=== PATIENT | female | born 1955 | race Caucasian/White ===

== ENCOUNTER 2023-09-17 03:52 | Outpatient (BNV) | payer MEDICARE, MEDICAID, SELFPAY | END 2023-09-17 10:51 | PROVIDERS: Admitting Provider Psychiatry & Neurology Psychiatry; Visit Provider Internal Medicine | DX: I45.81 Long QT syndrome (principal) | CPT/HCPCS: 93010 ==

== ENCOUNTER 2023-09-17 03:52 | Outpatient (BNV) | payer MEDICARE, MEDICAID, SELFPAY | END 2023-09-25 08:45 | PROVIDERS: Admitting Provider Psychiatry & Neurology Psychiatry; Visit Provider Physician Assistant Surgical | DX: K21.9 Gastro-esophageal reflux disease without esophagitis (principal) | CPT/HCPCS: 74246 ==

== ENCOUNTER 2023-09-17 03:52 | Inpatient (IN) | payer MEDICARE, MEDICAID, SELFPAY ==
--- NOTE | 2023-09-17 | ECG_ITS ---
Test Reason : QTC CHECK Blood Pressure : / mmHG Vent. Rate : 091 BPM Atrial Rate : 091 BPM P-R Int : 162 ms QRS Dur : 086 ms QT Int : 364 ms P-R-T Axes : 050 034 058 degrees QTc Int : 447 ms Normal sinus rhythm Normal ECG No previous ECGs available Referred By: Gabriella Bee Electronically Signed By:BHARAT EVANS
--- NOTE | ~2023-09-17 | FL_ITS ---
EXAMINATION: XR FLUOROSCOPY UPPER GI WITH AIR CLINICAL INFORMATION: Reflux; regurgitation COMPARISON: None TECHNIQUE: Fluoroscopic air contrast upper GI examination was performed utilizing standard techniques with thin and thick barium and effervescent granules. Numerous spot images were obtained. FINDINGS: Lateral cine images of the oropharynx and hypopharynx demonstrate normal swallow mechanism with normal epiglottic inversion and soft palate elevation. There is trace laryngeal penetration with thick barium. No tracheal penetration, glottic or subglottic aspiration identified. No nasopharyngeal reflux present. Hypopharyngeal structures appear normal without evidence of mass or diverticulum. There was mild cricopharyngeal achalasia. Dual and single contrast images of the esophagus demonstrate a dilated esophagus. Feline mucosal pattern noted episodically in the midesophagus. No evidence of stricture, mass, or ulcerations identified above the GE junction. Esophageal peristalsis was normal. A moderate size type I hiatal hernia is present. There is significant gastroesophageal reflux seen up to the thoracic inlet. There is a moderate short segment narrowing at the GE junction above the hiatus hernia, suggestive of a mild benign stricture versus mild achalasia. Evaluation of the stomach is limited from lck of distention due to poor tolerance of the effervescent granules. No gross evidence of mass, ulceration, or other abnormality. There was a delay in contrast passing from the gastric antrum and into the duodenal bulb due to the significant gastroesophageal reflux. Single and air-contrast images of the duodenal bulb are limited however no gross abnormality is seen. The duodenal sweep is poorly visualized due to the delayed gastric emptying/gastroesophageal reflux. The examination had to be terminated due to the patient's significant nausea and reflux symptoms. FLUOROSCOPY TIME: 6 minutes 36 seconds Number of Spot Images: 16 Number of Cine: 12 DOSE AREA PRODUCT: [id number] uGy-m2 (microgray-meter squared) FL/FL barium swallow IMPRESSION: 1. Trace laryngeal penetration with thick barium. No subglottic aspiration. 2. Dilated esophagus. Mild short segment benign stricture at the GE junction versus mild achalasia. 3. Moderate-sized type I hiatal hernia. 4. Severe gastroesophageal reflux. 5. Limited evaluation of the gastric mucosal and duodenal duodenal sweep due to poor tolerance of the effervescent granules, delayed gastric emptying, significant gastroesophageal reflux. Grossly no abnormality seen. This procedure was performed by Smith Alaniz PA-C, and supervised by Dr. Morgan
[2023-09-17 04:40] VITALS: BP 191/95; PULSE 95; RESP 18; TEMP 36.1; O2SAT 98
[2023-09-17 06:05] VITALS: BP 147/70; PULSE 86; RESP 17; O2SAT 96
[2023-09-17 06:29] VITALS: BMI 35.6
[2023-09-17] MEDS: Acetaminophen 325 MG TABLET 650 MG PO ×2 (06:57→17:11)
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
[2023-09-17 08:42] LABS: Estimated Average Glucose 309 mg/dL; Hemoglobin A1c % 12.4 % (<6.0)
[2023-09-17 08:43] LABS: Alanine Aminotransferase 20 U/L (0-31); Albumin Level 4.2 g/dL (3.5-5.0); Alkaline Phosphatase 109 U/L (39-117); Anion Gap 15 (12-20); Aspartate Amino Transferase 30 U/L (5-31); Bilirubin Total 0.3 mg/dL (0.0-1.0); Blood Urea Nitrogen 18 mg/dL (9-16); Calcium 9.5 mg/dL (8.4-10.2); Carbon Dioxide 29 mmol/L (22-29); Chloride 98 mmol/L (96-108); Cholesterol 175 mg/dL (<200); Creatinine Clr Calc Pharmacy 50.9; Estimated Glomerular Filt Rate 50; Glucose Fasting 206 mg/dL (60-99); HDL Cholesterol 67 mg/dL (>40); LDL Cholesterol Calculated 74 mg/dL (<100); Magnesium 1.3 mg/dL (1.6-2.6); Potassium 4.3 mmol/L (3.3-5.1); Sodium 138 mmol/L (135-145); Total Protein 8.3 g/dL (6.5-8.0); Triglycerides 170 mg/dL (<150)
--- NOTE | 2023-09-17 08:44 | PC.NURSE ---
Critical magnesium level of 1.3, DR Navarrete notified. Awaiting orders. Will continue to monitor.
[2023-09-17 08:51] LABS: Free T4 (Free Thyroxine) 0.88 ng/dL (0.71-1.85); Thyroid Stimulating Hormone 3.64 uIU/mL (0.32-4.0)
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
[2023-09-17 09:19] LABS: Folate 8.8 ng/mL (> or = 4.0); Vitamin B12 1178 pg/mL (200-900)
[2023-09-17 10:01] VITALS: BP 137/74; PULSE 93; RESP 18; TEMP 35.8; O2SAT 97
[2023-09-17] MEDS: Lidocaine 4 % Patch ADH..PATCH 1 PATCH TRANSDERMA (11:05)
[2023-09-17] MEDS: Magnesium Oxide 400 MG TABLET 800 MG PO (11:05)
[2023-09-17] MEDS: metFORMIN HCl ER 500 MG TAB.ER.24H 1000 MG PO ×2 (11:05→20:57)
[2023-09-17 11:20] LABS: Glucose, Whole Blood 186 mg/dL (60-115)
[2023-09-17 11:21] LABS: Iron 50 mcg/dL (30-160); Percent Iron Saturation 14 % (15-50); Total Iron Binding Capacity 370 mcg/dL (228-428); Unsaturated Iron Binding 320 ug/dL
[2023-09-17 11:23] LABS: Magnesium 1.2 mg/dL (1.6-2.6)
[2023-09-17] MEDS: Insulin Lispro 100 UNIT/ML 3 ML VIAL SUBCUT ×3 (12:45→20:55)
[2023-09-17] MEDS: Omeprazole 20 MG CAPSULE.DR PO ×2 (13:15→20:57)
[2023-09-17] MEDS: Venlafaxine HCl ER 75 MG CAP.ER.24H PO (13:17)
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
[2023-09-17] MEDS: amLODIPine Besylate 5 MG TABLET PO (14:28)
[2023-09-17] MEDS: lisinopriL 5 MG TABLET PO (14:28)
[2023-09-17 16:26] LABS: Glucose, Whole Blood 231 mg/dL (60-115)
[2023-09-17] MEDS: TiZANidine HCL 4 MG TABLET PO (18:00)
[2023-09-17] MEDS: hydrOXYzine HCL 25 MG TABLET PO (18:09)
[2023-09-17 19:55] VITALS: BP 124/65; PULSE 96; RESP 18; TEMP 36.4; O2SAT 97
[2023-09-17 20:10] LABS: Glucose, Whole Blood 220 mg/dL (60-115)
[2023-09-17] MEDS: Magnesium Oxide 400 MG TABLET PO (20:56)
[2023-09-17] MEDS: risperiDONE 2 MG TABLET PO (20:56)
[2023-09-17] MEDS: Atorvastatin Calcium 20 MG TABLET PO (20:56)
[2023-09-17] MEDS: Insulin Glargine,Hum.rec.anlog 100 UNIT/ML 10 ML VIAL 20 UNIT SUBCUT (20:56)
[2023-09-18] MEDS: Omeprazole 20 MG CAPSULE.DR PO ×2 (06:47→17:46)
[2023-09-18 06:52] LABS: Glucose, Whole Blood 170 mg/dL (60-115)
[2023-09-18 09:00] VITALS: BP 138/56; PULSE 117; RESP 18; TEMP 36.4; O2SAT 96
[2023-09-18] MEDS: Magnesium Hydrox/Alum Hydrox 30 ML ORAL.SUSP PO (09:59)
[2023-09-18] MEDS: Magnesium Oxide 400 MG TABLET PO ×2 (10:04→21:51)
[2023-09-18] MEDS: lisinopriL 5 MG TABLET PO (10:04)
[2023-09-18] MEDS: clonazePAM 0.5 MG TABLET PO ×2 (10:04→21:51)
[2023-09-18] MEDS: Venlafaxine HCl ER 75 MG CAP.ER.24H PO (10:05)
[2023-09-18] MEDS: amLODIPine Besylate 5 MG TABLET PO (10:05)
[2023-09-18] MEDS: metFORMIN HCl ER 500 MG TAB.ER.24H 1000 MG PO ×2 (10:06→21:50)
[2023-09-18] MEDS: Insulin Lispro 100 UNIT/ML 3 ML VIAL SUBCUT ×3 (10:30→21:49)
[2023-09-18] MEDS: Lidocaine 4 % Patch ADH..PATCH 1 PATCH TRANSDERMA (10:31)
[2023-09-18 11:29] LABS: Glucose, Whole Blood 315 mg/dL (60-115)
[2023-09-18 12:36] LABS: Glucose, Whole Blood 268 mg/dL (60-115)
[2023-09-18 12:57] LABS: Iron 22 mcg/dL (30-160); Magnesium 1.3 mg/dL (1.6-2.6); Percent Iron Saturation 8 % (15-50); Total Iron Binding Capacity 282 mcg/dL (228-428); Unsaturated Iron Binding 260 ug/dL
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
[2023-09-18 16:54] LABS: Glucose, Whole Blood 287 mg/dL (60-115)
[2023-09-18] MEDS: Acetaminophen 325 MG TABLET 650 MG PO (17:45)
[2023-09-18] MEDS: Ferrous Sulfate 324 MG TABLET.DR PO (17:45)
[2023-09-18] MEDS: TiZANidine HCL 4 MG TABLET PO (17:46)
[2023-09-18 18:00] VITALS: BP 131/62; PULSE 99; RESP 18; TEMP 36.1; O2SAT 97
[2023-09-18 20:28] LABS: Glucose, Whole Blood 237 mg/dL (60-115)
[2023-09-18] MEDS: Insulin Glargine,Hum.rec.anlog 100 UNIT/ML 10 ML VIAL 20 UNIT SUBCUT (21:49)
[2023-09-18] MEDS: Atorvastatin Calcium 20 MG TABLET PO (21:50)
[2023-09-18] MEDS: risperiDONE 2 MG TABLET PO (21:51)
[2023-09-18] MEDS: traZODone HCL 50 MG TABLET PO (21:52)
[2023-09-19] MEDS: Omeprazole 20 MG CAPSULE.DR PO ×2 (05:46→16:01)
[2023-09-19 06:26] LABS: Glucose, Whole Blood 196 mg/dL (60-115)
[2023-09-19 07:00] VITALS: BMI 35.0
[2023-09-19 08:12] VITALS: BP 130/63; PULSE 109; RESP 16; TEMP 36.8; O2SAT 95
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
[2023-09-19 09:58] LABS: Glucose, Whole Blood 226 mg/dL (60-115)
[2023-09-19] MEDS: Insulin Lispro 100 UNIT/ML 3 ML VIAL SUBCUT ×3 (10:01→21:44)
[2023-09-19] MEDS: TiZANidine HCL 4 MG TABLET PO ×2 (10:03→21:36)
[2023-09-19] MEDS: metFORMIN HCl ER 500 MG TAB.ER.24H 1000 MG PO ×2 (10:03→21:38)
[2023-09-19] MEDS: Ferrous Sulfate 324 MG TABLET.DR PO (10:03)
[2023-09-19] MEDS: amLODIPine Besylate 5 MG TABLET PO (10:03)
[2023-09-19] MEDS: lisinopriL 5 MG TABLET PO (10:04)
[2023-09-19] MEDS: Magnesium Oxide 400 MG TABLET PO ×2 (10:04→21:40)
[2023-09-19] MEDS: Acetaminophen 325 MG TABLET 650 MG PO ×2 (10:04→21:37)
[2023-09-19] MEDS: clonazePAM 0.5 MG TABLET PO ×2 (10:04→21:40)
[2023-09-19] MEDS: Venlafaxine HCl ER 75 MG CAP.ER.24H PO (10:04)
[2023-09-19] MEDS: hydrOXYzine HCL 25 MG TABLET PO (10:05)
[2023-09-19] MEDS: Lidocaine 4 % Patch ADH..PATCH 1 PATCH TRANSDERMA (10:09)
[2023-09-19 11:29] LABS: Glucose, Whole Blood 351 mg/dL (60-115)
--- NOTE | 2023-09-19 11:40 | PC.NURSE ---
POC 351 before lunch, Gabriella Bee notified per sliding scale policy. Lin is asymptomatic.
[2023-09-19] MEDS: Famotidine 20 MG TABLET 10 MG PO (12:24)
[2023-09-19 16:13] LABS: Glucose, Whole Blood 218 mg/dL (60-115)
[2023-09-19 18:00] VITALS: BP 121/57; PULSE 103; RESP 18; TEMP 36.2; O2SAT 95
[2023-09-19 19:58] LABS: Glucose, Whole Blood 313 mg/dL (60-115)
[2023-09-19] MEDS: Atorvastatin Calcium 20 MG TABLET PO (21:39)
[2023-09-19] MEDS: risperiDONE 2 MG TABLET PO (21:39)
[2023-09-19] MEDS: traZODone HCL 50 MG TABLET PO (21:40)
[2023-09-19] MEDS: Insulin Glargine,Hum.rec.anlog 100 UNIT/ML 10 ML VIAL 20 UNIT SUBCUT (21:43)
[2023-09-20] MEDS: Omeprazole 20 MG CAPSULE.DR PO ×2 (05:29→16:58)
[2023-09-20 06:25] LABS: Glucose, Whole Blood 158 mg/dL (60-115)
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
[2023-09-20 10:40] VITALS: BP 151/70; PULSE 97; RESP 18; TEMP 36.3; O2SAT 95
[2023-09-20] MEDS: lisinopriL 5 MG TABLET PO (10:43)
[2023-09-20] MEDS: Venlafaxine HCl ER 75 MG CAP.ER.24H PO (10:43)
[2023-09-20] MEDS: clonazePAM 0.5 MG TABLET PO ×2 (10:43→21:02)
[2023-09-20] MEDS: amLODIPine Besylate 5 MG TABLET PO (10:43)
[2023-09-20] MEDS: metFORMIN HCl ER 500 MG TAB.ER.24H 1000 MG PO ×2 (10:43→21:02)
[2023-09-20] MEDS: Magnesium Oxide 400 MG TABLET PO ×2 (10:44→21:01)
[2023-09-20] MEDS: TiZANidine HCL 4 MG TABLET PO (10:44)
[2023-09-20] MEDS: Acetaminophen 325 MG TABLET 650 MG PO (10:44)
[2023-09-20] MEDS: Ferrous Sulfate 324 MG TABLET.DR PO (10:44)
[2023-09-20] MEDS: risperiDONE 1 MG TABLET PO (10:46)
[2023-09-20 11:15] LABS: Glucose, Whole Blood 200 mg/dL (60-115)
[2023-09-20] MEDS: Insulin Lispro 100 UNIT/ML 3 ML VIAL SUBCUT ×3 (11:48→21:03)
[2023-09-20 16:27] LABS: Glucose, Whole Blood 223 mg/dL (60-115)
[2023-09-20 16:58] LABS: Magnesium 1.6 mg/dL (1.6-2.6)
[2023-09-20 20:01] LABS: Glucose, Whole Blood 288 mg/dL (60-115)
[2023-09-20 21:00] VITALS: BP 153/77; PULSE 107; RESP 16; TEMP 35.6; O2SAT 94
[2023-09-20] MEDS: Atorvastatin Calcium 20 MG TABLET PO (21:02)
[2023-09-20] MEDS: Insulin Glargine,Hum.rec.anlog 100 UNIT/ML 10 ML VIAL 20 UNIT SUBCUT (21:02)
[2023-09-20] MEDS: traZODone HCL 50 MG TABLET PO (21:02)
[2023-09-20] MEDS: risperiDONE 2 MG TABLET PO (21:02)
[2023-09-21] MEDS: Loperamide HCl 2 MG CAPSULE PO (02:20)
[2023-09-21 06:38] LABS: Glucose, Whole Blood 184 mg/dL (60-115)
[2023-09-21] MEDS: Omeprazole 20 MG CAPSULE.DR PO ×2 (06:39→16:37)
[2023-09-21 09:27] VITALS: BP 111/61; PULSE 102; RESP 17; TEMP 36.2; O2SAT 96
[2023-09-21] MEDS: metFORMIN HCl ER 500 MG TAB.ER.24H 1000 MG PO ×2 (10:46→21:10)
[2023-09-21] MEDS: risperiDONE 1 MG TABLET PO (10:46)
[2023-09-21] MEDS: Magnesium Oxide 400 MG TABLET PO ×2 (10:46→21:11)
[2023-09-21] MEDS: clonazePAM 0.5 MG TABLET PO ×2 (10:46→21:10)
[2023-09-21] MEDS: amLODIPine Besylate 5 MG TABLET PO (10:46)
[2023-09-21] MEDS: Venlafaxine HCl ER 75 MG CAP.ER.24H PO (10:46)
[2023-09-21] MEDS: lisinopriL 5 MG TABLET PO (10:46)
[2023-09-21] MEDS: Ferrous Sulfate 324 MG TABLET.DR PO (10:47)
[2023-09-21] MEDS: Lidocaine 4 % Patch ADH..PATCH 1 PATCH TRANSDERMA (10:52)
--- NOTE | 2023-09-21 10:56 | HO.PSYCHPN ---
Subjective Subjective Date of Service: 09/21/23 Reason For Visit: Unspecified psychosis Interim History: calm, cooperative. no questions or complaints. resting in bed. per staff, slept through the night. FSBS 184. Mental Status Exam Mental Status Exam Narrative: Appearance: wearing hospital gown, fair hygiene, in NAD Behavior: guarded Psychomotor: no agitation or retardation noted Speech: mostly clear, normal rate/rhythm/volume, spontaneous TP: disorganized TC: no paranoia or delusions expressed Mood: not assessed Affect: blunted SI: none expressed HI: none expressed VH/AH: none expressed Insight/judgment: poor x 2. Memory/cog: alert, oriented x 3. Diagnostics Vital Signs (24Hr): Vital Signs - 24 hr 09/20/23 21:00 09/21/23 09:27 Temperature 96.1 F L 97.2 F Pulse Rate 107 H 102 H Respiratory Rate 16 17 Blood Pressure 153/77 H 111/61 Pulse Oximetry 94 96 Oxygen Delivery Method Room Air Room Air BMI result Body Mass Index 35.0 Labs 09/17/23 07:58 Labs: Laboratory Results - last 48 hr 09/19/23 09/19/23 09/19/23 11:24 16:04 19:53 POC Glucose 351 H* 218 H 313 H Magnesium 09/20/23 09/20/23 09/20/23 06:19 11:10 16:22 POC Glucose 158 H 200 H 223 H Magnesium 09/20/23 09/20/23 09/21/23 16:38 19:54 06:25 POC Glucose 288 H 184 H Magnesium 1.6 Medications Medications Current Medications Acetaminophen (Acetaminophen 325 Mg Tablet) 650 mg PO Q6H PRN PRN Reason: Headache/Pain Mild Scale (1-3) Last Admin: 09/20/23 10:44 Dose: 650 mg Al Hydroxide/Mg Hydroxide (Magnesium Hydrox/Alum Hydrox 30 Ml Oral.Susp) 30 ml PO Q6H PRN PRN Reason: Heartburn/Nausea Last Admin: 09/18/23 09:59 Dose: 30 ml Amlodipine Besylate (Amlodipine Besylate 5 Mg Tablet) 5 mg PO DAILY [facility]; Protocol Last Admin: 09/21/23 10:46 Dose: 5 mg Atorvastatin Calcium (Atorvastatin Calcium 20 Mg Tablet) 20 mg PO BEDTIME [facility] Last Admin: 09/20/23 21:02 Dose: 20 mg Clonazepam (Clonazepam 0.5 Mg Tablet) 0.5 mg PO BID [facility] Last Admin: 09/21/23 10:46 Dose: 0.5 mg Ferrous Sulfate (Ferrous Sulfate 324 Mg Tablet.) 324 mg PO DAILY [facility] Last Admin: 09/21/23 10:47 Dose: 324 mg Hydroxyzine HCl (Hydroxyzine Hcl 25 Mg Tablet) 25 mg PO Q6H PRN PRN Reason: Anxiety Last Admin: 09/19/23 10:05 Dose: 25 mg Insulin Glargine (Insulin Glargine,Hum.Rec.Anlog 100 Unit/Ml 10 Ml Vial) 20 unit SUBCUT BEDTIME [facility] Last Admin: 09/20/23 21:02 Dose: 20 unit Insulin Human Lispro (Insulin Lispro 100 Unit/Ml 3 Ml Vial) 0 unit SUBCUT QIDACHS [facility]; Protocol Last Admin: 09/21/23 08:40 Dose: Not Given Lidocaine (Lidocaine 4 % Patch Adh..Patch) 1 patch TRANSDERMA DAILY [facility]; Protocol Last Admin: 09/21/23 10:52 Dose: 1 patch Lisinopril (Lisinopril 5 Mg Tablet) 5 mg PO DAILY [facility]; Protocol Last Admin: 09/21/23 10:46 Dose: 5 mg Magnesium Hydroxide (Milk Of Magnesia 30 Ml Oral.Susp) 30 ml PO DAILY PRN PRN Reason: Constipation Magnesium Oxide (Magnesium Oxide 400 Mg Tablet) 400 mg PO BID [facility] Last Admin: 09/21/23 10:46 Dose: 400 mg Meclizine HCl (Meclizine Hcl 12.5 Mg Tablet) 12.5 mg PO Q8H PRN PRN Reason: Vertigo Metformin HCl (Metformin Hcl Er 500 Mg Tab.Er.24h) 1,000 mg PO BID [facility] Last Admin: 09/21/23 10:46 Dose: 1,000 mg Omeprazole (Omeprazole 20 Mg Capsule.) 20 mg PO BID@0630,1630 [facility] Last Admin: 09/21/23 06:39 Dose: 20 mg Risperidone (Risperidone 2 Mg Tablet) 2 mg PO BEDTIME [facility] Last Admin: 09/20/23 21:02 Dose: 2 mg Risperidone (Risperidone 1 Mg Tablet) 1 mg PO DAILY [facility] Last Admin: 09/21/23 10:46 Dose: 1 mg Tizanidine HCl (Tizanidine Hcl 4 Mg Tablet) 4 mg PO TID PRN PRN Reason: muscle spasm Last Admin: 09/20/23 10:44 Dose: 4 mg Trazodone HCl (Trazodone Hcl 50 Mg Tablet) 50 mg PO BEDTIME PRN PRN Reason: Insomnia Last Admin: 09/20/23 21:02 Dose: 50 mg Venlafaxine HCl (Venlafaxine Hcl Er 75 Mg Cap.Er.24h) 75 mg PO DAILY [facility] Last Admin: 09/21/23 10:46 Dose: 75 mg Allergies Allergies Allergy/AdvReac Type Severity Reaction Status Date / Time No Known Allergies Allergy Verified 09/16/23 21:45 Assessment & Plan Assessment & Plan (1) Psychosis: Status: Acute Code(s): F29 - Unspecified psychosis not due to a substance or known physiological condition Plan 63 year old female with history of htn, uncontrolled type 2 diabetes, gerd/gastritis, depression, unspecified psychosis, hld, oa, ckd stage 3, tobacco dependence admitted to geriatric psychiatry from [facility] with consult placed to hospitalist service for medical H&P. - increase risperidone to 1mg po daily and 2mg po qhs. monitor Mg. 09/19 continue tx.PLEASE DO NOT INCREASE EFFEXOR IT WILL WORSEN HER PSYCHOSIS AND DELUSIONS! 09/20: continue current mgmt. Reason for continued inpatient stay Substantial Risk for: inability to function Time Spent With Patient Time: Total time managing care of this patient today ____ minutes.
[2023-09-21 11:30] LABS: Glucose, Whole Blood 194 mg/dL (60-115)
[2023-09-21] MEDS: Insulin Lispro 100 UNIT/ML 3 ML VIAL SUBCUT ×3 (11:31→21:11)
[2023-09-21 16:21] LABS: Glucose, Whole Blood 253 mg/dL (60-115)
--- NOTE | 2023-09-21 16:56 | PC.NURSE ---
This evening patient reported pain in her left wrist/forearm. Informed this nurse that it is an aching feeling and she has trouble closing her hand into a fist. No notable bruising or swelling, patient refused PRN Tylenol but utilizing an ice pack per her request. Covering MD Herson Jc notified via tiger text.
[2023-09-21 19:55] VITALS: BP 123/68; PULSE 106; RESP 18; TEMP 36.4; O2SAT 98
[2023-09-21 20:18] LABS: Glucose, Whole Blood 296 mg/dL (60-115)
[2023-09-21] MEDS: Insulin Glargine,Hum.rec.anlog 100 UNIT/ML 10 ML VIAL 20 UNIT SUBCUT (21:11)
[2023-09-21] MEDS: risperiDONE 2 MG TABLET PO (21:11)
[2023-09-21] MEDS: Atorvastatin Calcium 20 MG TABLET PO (21:11)
[2023-09-22] MEDS: Omeprazole 20 MG CAPSULE.DR PO ×2 (06:15→16:43)
[2023-09-22 06:32] LABS: Glucose, Whole Blood 179 mg/dL (60-115)
[2023-09-22 08:22] VITALS: BP 136/61; PULSE 108; RESP 17; TEMP 36.3; O2SAT 94
[2023-09-22] MEDS: lisinopriL 5 MG TABLET PO (08:28)
[2023-09-22] MEDS: Ferrous Sulfate 324 MG TABLET.DR PO (08:28)
[2023-09-22] MEDS: metFORMIN HCl ER 500 MG TAB.ER.24H 1000 MG PO ×2 (08:28→20:25)
[2023-09-22] MEDS: risperiDONE 1 MG TABLET PO (08:28)
[2023-09-22] MEDS: Venlafaxine HCl ER 75 MG CAP.ER.24H PO (08:28)
[2023-09-22] MEDS: amLODIPine Besylate 5 MG TABLET PO (08:28)
[2023-09-22] MEDS: Magnesium Oxide 400 MG TABLET PO ×2 (08:28→20:24)
[2023-09-22] MEDS: clonazePAM 0.5 MG TABLET PO ×2 (08:29→20:25)
--- NOTE | 2023-09-22 11:23 | P.PNPSI_ITS ---
Subjective Subjective Date of Service: 09/22/23 Reason For Visit: Unspecified psychosis Interim History: no complaints or requests. per staff, no change in presentation. 179 FSBS. held insulin 2/2 her not eating bfast. taking meds. Mental Status Exam Mental Status Exam Narrative: Appearance: wearing hospital gown, fair hygiene, in NAD Behavior: guarded Psychomotor: no agitation or retardation noted Speech: mostly clear, normal rate/rhythm/volume, spontaneous TP: disorganized TC: no paranoia or delusions expressed Mood: not assessed Affect: blunted SI: none expressed HI: none expressed VH/AH: none expressed Insight/judgment: poor x 2. Memory/cog: alert, oriented x 3. Diagnostics Vital Signs (24Hr): Vital Signs - 24 hr 09/21/23 19:55 09/22/23 08:22 Temperature 97.5 F 97.3 F Pulse Rate 106 H 108 H Respiratory Rate 18 17 Blood Pressure 123/68 136/61 Pulse Oximetry 98 94 Oxygen Delivery Method Room Air Room Air BMI result Body Mass Index 35.0 Labs 09/17/23 07:58 Labs: Laboratory Results - last 48 hr 09/20/23 09/20/23 09/20/23 16:22 16:38 19:54 POC Glucose 223 H 288 H Magnesium 1.6 09/21/23 09/21/23 09/21/23 06:25 11:21 16:14 POC Glucose 184 H 194 H 253 H Magnesium 09/21/23 09/22/23 20:12 06:07 POC Glucose 296 H 179 H Magnesium Medications Medications Current Medications Acetaminophen (Acetaminophen 325 Mg Tablet) 650 mg PO Q6H PRN PRN Reason: Headache/Pain Mild Scale (1-3) Last Admin: 09/20/23 10:44 Dose: 650 mg Al Hydroxide/Mg Hydroxide (Magnesium Hydrox/Alum Hydrox 30 Ml Oral.Susp) 30 ml PO Q6H PRN PRN Reason: Heartburn/Nausea Last Admin: 09/18/23 09:59 Dose: 30 ml Amlodipine Besylate (Amlodipine Besylate 5 Mg Tablet) 5 mg PO DAILY [facility]; Protocol Last Admin: 09/22/23 08:28 Dose: 5 mg Atorvastatin Calcium (Atorvastatin Calcium 20 Mg Tablet) 20 mg PO BEDTIME [facility] Last Admin: 09/21/23 21:11 Dose: 20 mg Clonazepam (Clonazepam 0.5 Mg Tablet) 0.5 mg PO BID [facility] Last Admin: 09/22/23 08:29 Dose: 0.5 mg Ferrous Sulfate (Ferrous Sulfate 324 Mg Tablet.) 324 mg PO DAILY [facility] Last Admin: 09/22/23 08:28 Dose: 324 mg Hydroxyzine HCl (Hydroxyzine Hcl 25 Mg Tablet) 25 mg PO Q6H PRN PRN Reason: Anxiety Last Admin: 09/19/23 10:05 Dose: 25 mg Insulin Glargine (Insulin Glargine,Hum.Rec.Anlog 100 Unit/Ml 10 Ml Vial) 20 unit SUBCUT BEDTIME [facility] Last Admin: 09/21/23 21:11 Dose: 20 unit Insulin Human Lispro (Insulin Lispro 100 Unit/Ml 3 Ml Vial) 0 unit SUBCUT QIDACHS [facility]; Protocol Last Admin: 09/22/23 08:32 Dose: Not Given Lidocaine (Lidocaine 4 % Patch Adh..Patch) 1 patch TRANSDERMA DAILY [facility]; Protocol Last Admin: 09/21/23 10:52 Dose: 1 patch Lisinopril (Lisinopril 5 Mg Tablet) 5 mg PO DAILY [facility]; Protocol Last Admin: 09/22/23 08:28 Dose: 5 mg Magnesium Hydroxide (Milk Of Magnesia 30 Ml Oral.Susp) 30 ml PO DAILY PRN PRN Reason: Constipation Magnesium Oxide (Magnesium Oxide 400 Mg Tablet) 400 mg PO BID [facility] Last Admin: 09/22/23 08:28 Dose: 400 mg Meclizine HCl (Meclizine Hcl 12.5 Mg Tablet) 12.5 mg PO Q8H PRN PRN Reason: Vertigo Metformin HCl (Metformin Hcl Er 500 Mg Tab.Er.24h) 1,000 mg PO BID [facility] Last Admin: 09/22/23 08:28 Dose: 1,000 mg Omeprazole (Omeprazole 20 Mg Capsule.) 20 mg PO BID@0630,1630 [facility] Last Admin: 09/22/23 06:15 Dose: 20 mg Risperidone (Risperidone 2 Mg Tablet) 2 mg PO BEDTIME [facility] Last Admin: 09/21/23 21:11 Dose: 2 mg Risperidone (Risperidone 1 Mg Tablet) 1 mg PO DAILY [facility] Last Admin: 09/22/23 08:28 Dose: 1 mg Tizanidine HCl (Tizanidine Hcl 4 Mg Tablet) 4 mg PO TID PRN PRN Reason: muscle spasm Last Admin: 09/20/23 10:44 Dose: 4 mg Trazodone HCl (Trazodone Hcl 50 Mg Tablet) 50 mg PO BEDTIME PRN PRN Reason: Insomnia Last Admin: 09/20/23 21:02 Dose: 50 mg Venlafaxine HCl (Venlafaxine Hcl Er 75 Mg Cap.Er.24h) 75 mg PO DAILY [facility] Last Admin: 09/22/23 08:28 Dose: 75 mg Allergies Allergies Allergy/AdvReac Type Severity Reaction Status Date / Time No Known Allergies Allergy Verified 09/16/23 21:45 Assessment & Plan Assessment & Plan (1) Psychosis: Status: Acute Code(s): F29 - Unspecified psychosis not due to a substance or known physiological condition Plan 63 year old female with history of htn, uncontrolled type 2 diabetes, gerd/gastritis, depression, unspecified psychosis, hld, oa, ckd stage 3, tobacco dependence admitted to geriatric psychiatry from [facility] [place] with consult placed to hospitalist service for medical H&P. - increase risperidone to 1mg po daily and 2mg po qhs. monitor Mg. 09/19 continue tx.PLEASE DO NOT INCREASE EFFEXOR IT WILL WORSEN HER PSYCHOSIS AND DELUSIONS! 09/20: continue current mgmt. 09/21: stable presentation. continue current mgmt. Reason for continued inpatient stay Substantial Risk for: inability to function Time Spent With Patient Time: Total time managing care of this patient today ____ minutes.
[2023-09-22 11:36] LABS: Glucose, Whole Blood 211 mg/dL (60-115)
[2023-09-22] MEDS: Insulin Lispro 100 UNIT/ML 3 ML VIAL SUBCUT ×3 (11:44→23:59)
[2023-09-22] MEDS: Acetaminophen 325 MG TABLET 650 MG PO (13:17)
[2023-09-22 16:34] LABS: Glucose, Whole Blood 277 mg/dL (60-115)
[2023-09-22] MEDS: Loperamide HCl 2 MG CAPSULE PO (16:51)
[2023-09-22 18:00] VITALS: BP 113/53; PULSE 110; RESP 18; TEMP 36.6; O2SAT 97
[2023-09-22] MEDS: risperiDONE 2 MG TABLET PO (20:25)
[2023-09-22] MEDS: Atorvastatin Calcium 20 MG TABLET PO (20:25)
[2023-09-22] MEDS: Insulin Glargine,Hum.rec.anlog 100 UNIT/ML 10 ML VIAL 20 UNIT SUBCUT (20:26)
[2023-09-22 20:53] LABS: Glucose, Whole Blood 287 mg/dL (60-115)
[2023-09-23] MEDS: TiZANidine HCL 4 MG TABLET PO ×2 (00:54→11:06)
[2023-09-23] MEDS: hydrOXYzine HCL 25 MG TABLET PO ×2 (00:55→22:06)
[2023-09-23] MEDS: Omeprazole 20 MG CAPSULE.DR PO ×2 (05:38→16:22)
[2023-09-23 06:39] LABS: Glucose, Whole Blood 214 mg/dL (60-115)
[2023-09-23 08:39] VITALS: BP 130/64; PULSE 97; RESP 16; TEMP 36.3; O2SAT 96
--- NOTE | 2023-09-23 09:00 | P.PNPSI_ITS ---
Subjective Subjective Date of Service: 09/23/23 Reason For Visit: Unspecified psychosis Subjective Notes: Conditional Voluntary Interim History: Pt presents with conversation that is slightly more base on reality in the sense that she is slowly coming to terms that she may not be able to return to SNF and that she needs to be referred somewhere else. She did ask for family meeting with her sister and SW. she has been taking medications as prescribed. She continues to report nausea. She also reports although not vomiting, difficult to keep food in. Decrease oral intake. She is already on omeprazole. She has not followed up with GI outpatient. probably will be here for a long time. Review of Systems Review of Systems Yes all other systems are reviewed and are negative Mental Status Exam Mental Status Exam Narrative: Appearance: wearing hospital gown, fair hygiene, in NAD Behavior: guarded Psychomotor: no agitation or retardation noted Speech: mostly clear, normal rate/rhythm/volume, spontaneous TP: disorganized TC: no paranoia or delusions expressed Mood: not assessed Affect: blunted SI: none expressed HI: none expressed VH/AH: none expressed Insight/judgment: poor x 2. Memory/cog: alert, oriented x 3. Diagnostics Vital Signs (24Hr): Vital Signs - 24 hr 09/22/23 18:00 Temperature 98 F Pulse Rate 110 H Respiratory Rate 18 Blood Pressure 113/53 L Pulse Oximetry 97 Oxygen Delivery Method Room Air BMI result Body Mass Index 35.0 Labs 09/24/23 07:57 Labs: Laboratory Results - last 48 hr 09/21/23 09/21/23 09/21/23 11:21 16:14 20:12 POC Glucose 194 H 253 H 296 H 09/22/23 09/22/23 09/22/23 06:07 11:33 16:30 POC Glucose 179 H 211 H 277 H 09/22/23 09/23/23 20:26 06:33 POC Glucose 287 H 214 H Medications Medications Current Medications Acetaminophen (Acetaminophen 325 Mg Tablet) 650 mg PO Q6H PRN PRN Reason: Headache/Pain Mild Scale (1-3) Last Admin: 09/22/23 13:17 Dose: 650 mg Al Hydroxide/Mg Hydroxide (Magnesium Hydrox/Alum Hydrox 30 Ml Oral.Susp) 30 ml PO Q6H PRN PRN Reason: Heartburn/Nausea Last Admin: 09/18/23 09:59 Dose: 30 ml Amlodipine Besylate (Amlodipine Besylate 5 Mg Tablet) 5 mg PO DAILY [facility]; Protocol Last Admin: 09/22/23 08:28 Dose: 5 mg Atorvastatin Calcium (Atorvastatin Calcium 20 Mg Tablet) 20 mg PO BEDTIME [facility] Last Admin: 09/22/23 20:25 Dose: 20 mg Clonazepam (Clonazepam 0.5 Mg Tablet) 0.5 mg PO BID [facility] Last Admin: 09/22/23 20:25 Dose: 0.5 mg Ferrous Sulfate (Ferrous Sulfate 324 Mg Tablet.) 324 mg PO DAILY [facility] Last Admin: 09/22/23 08:28 Dose: 324 mg Hydroxyzine HCl (Hydroxyzine Hcl 25 Mg Tablet) 25 mg PO Q6H PRN PRN Reason: Anxiety Last Admin: 09/23/23 00:55 Dose: 25 mg Insulin Glargine (Insulin Glargine,Hum.Rec.Anlog 100 Unit/Ml 10 Ml Vial) 20 unit SUBCUT BEDTIME [facility] Last Admin: 09/22/23 20:26 Dose: 20 unit Insulin Human Lispro (Insulin Lispro 100 Unit/Ml 3 Ml Vial) 0 unit SUBCUT QIDACHS [facility]; Protocol Last Admin: 09/22/23 23:59 Dose: 6 unit Lidocaine (Lidocaine 4 % Patch Adh..Patch) 1 patch TRANSDERMA DAILY [facility]; Protocol Last Admin: 09/22/23 11:46 Dose: Not Given Lisinopril (Lisinopril 5 Mg Tablet) 5 mg PO DAILY [facility]; Protocol Last Admin: 09/22/23 08:28 Dose: 5 mg Loperamide HCl (Loperamide Hcl 2 Mg Capsule) 2 mg PO Q6H PRN PRN Reason: diarrhea Last Admin: 09/22/23 16:51 Dose: 2 mg Magnesium Hydroxide (Milk Of Magnesia 30 Ml Oral.Susp) 30 ml PO DAILY PRN PRN Reason: Constipation Magnesium Oxide (Magnesium Oxide 400 Mg Tablet) 400 mg PO BID [facility] Last Admin: 09/22/23 20:24 Dose: 400 mg Meclizine HCl (Meclizine Hcl 12.5 Mg Tablet) 12.5 mg PO Q8H PRN PRN Reason: Vertigo Metformin HCl (Metformin Hcl Er 500 Mg Tab.Er.24h) 1,000 mg PO BID [facility] Last Admin: 09/22/23 20:25 Dose: 1,000 mg Omeprazole (Omeprazole 20 Mg Capsule.) 20 mg PO BID@0630,2520 [facility] Last Admin: 09/23/23 05:38 Dose: 20 mg Risperidone (Risperidone 2 Mg Tablet) 2 mg PO BEDTIME [facility] Last Admin: 09/22/23 20:25 Dose: 2 mg Risperidone (Risperidone 1 Mg Tablet) 1 mg PO DAILY [facility] Last Admin: 09/22/23 08:28 Dose: 1 mg Tizanidine HCl (Tizanidine Hcl 4 Mg Tablet) 4 mg PO TID PRN PRN Reason: muscle spasm Last Admin: 09/23/23 00:54 Dose: 4 mg Trazodone HCl (Trazodone Hcl 50 Mg Tablet) 50 mg PO BEDTIME PRN PRN Reason: Insomnia Last Admin: 09/20/23 21:02 Dose: 50 mg Venlafaxine HCl (Venlafaxine Hcl Er 75 Mg Cap.Er.24h) 75 mg PO DAILY [facility] Last Admin: 09/22/23 08:28 Dose: 75 mg Allergies Allergies Allergy/AdvReac Type Severity Reaction Status Date / Time No Known Allergies Allergy Verified 09/16/23 21:45 Assessment & Plan Assessment & Plan (1) Psychosis: Status: Acute Code(s): F29 - Unspecified psychosis not due to a substance or known physiological condition Plan 63 year old female with history of htn, uncontrolled type 2 diabetes, gerd/gastritis, depression, unspecified psychosis, hld, oa, ckd stage 3, tobacco dependence admitted to geriatric psychiatry from [facility] [place] with consult placed to hospitalist service for medical H&P. - increase risperidone to 1mg po daily and 2mg po qhs. monitor Mg. 09/19 continue tx.PLEASE DO NOT INCREASE EFFEXOR IT WILL WORSEN HER PSYCHOSIS AND DELUSIONS! 32: continue current mgmt. 3/3: stable presentation. continue current mgmt. 3/4 continue tx. family meeting to be scheduled. will discuss with hospital ongoing nausea, decrease oral intake. Reason for continued inpatient stay Substantial Risk for: inability to function Time Spent With Patient Time: Total time managing care of this patient today ____ minutes.
--- NOTE | 2023-09-23 09:22 | PC.NURSE ---
HR 100s-110s and Lin is asymptomatic; Gabriella Bee NP notified. Refused breakfast and held morning insulin; Gabriella Bee NP notified.
[2023-09-23 11:06] LABS: Glucose, Whole Blood 271 mg/dL (60-115)
[2023-09-23] MEDS: clonazePAM 0.5 MG TABLET PO ×2 (11:06→22:06)
[2023-09-23] MEDS: metFORMIN HCl ER 500 MG TAB.ER.24H 1000 MG PO ×2 (11:06→22:06)
[2023-09-23] MEDS: amLODIPine Besylate 5 MG TABLET PO (11:06)
[2023-09-23] MEDS: risperiDONE 1 MG TABLET PO (11:06)
[2023-09-23] MEDS: lisinopriL 5 MG TABLET PO (11:06)
[2023-09-23] MEDS: Magnesium Oxide 400 MG TABLET PO ×2 (11:06→22:06)
[2023-09-23] MEDS: Ferrous Sulfate 324 MG TABLET.DR PO (11:06)
[2023-09-23] MEDS: Venlafaxine HCl ER 75 MG CAP.ER.24H PO (11:06)
[2023-09-23] MEDS: Insulin Lispro 100 UNIT/ML 3 ML VIAL SUBCUT ×3 (11:52→22:09)
[2023-09-23 16:15] LABS: Glucose, Whole Blood 283 mg/dL (60-115)
[2023-09-23 17:05] VITALS: BP 134/73; PULSE 97
[2023-09-23 17:10] VITALS: BP 156/76; PULSE 111
[2023-09-23 18:00] VITALS: BP 123/59; PULSE 103; RESP 16; TEMP 36.3; O2SAT 95
[2023-09-23 20:47] LABS: Glucose, Whole Blood 181 mg/dL (60-115)
[2023-09-23] MEDS: risperiDONE 2 MG TABLET PO (22:05)
[2023-09-23] MEDS: Atorvastatin Calcium 20 MG TABLET PO (22:06)
[2023-09-23] MEDS: traZODone HCL 50 MG TABLET PO (22:06)
[2023-09-23] MEDS: Insulin Glargine,Hum.rec.anlog 100 UNIT/ML 10 ML VIAL 20 UNIT SUBCUT (22:08)
[2023-09-24] MEDS: Omeprazole 20 MG CAPSULE.DR PO ×2 (05:42→16:55)
[2023-09-24 06:33] LABS: Glucose, Whole Blood 159 mg/dL (60-115)
[2023-09-24 07:35] VITALS: BP 98/59; PULSE 97; RESP 18; TEMP 36.8; O2SAT 97
[2023-09-24] MEDS: Ferrous Sulfate 324 MG TABLET.DR PO (08:37)
[2023-09-24] MEDS: Magnesium Oxide 400 MG TABLET PO ×2 (08:38→20:56)
[2023-09-24] MEDS: metFORMIN HCl ER 500 MG TAB.ER.24H 1000 MG PO ×2 (08:38→20:56)
[2023-09-24] MEDS: Venlafaxine HCl ER 75 MG CAP.ER.24H PO (08:38)
[2023-09-24] MEDS: risperiDONE 1 MG TABLET PO (08:38)
[2023-09-24] MEDS: clonazePAM 0.5 MG TABLET PO ×2 (08:38→20:56)
[2023-09-24 08:52] LABS: Creatinine Clr Calc Pharmacy 48.7; Estimated Glomerular Filt Rate 48
[2023-09-24 11:31] LABS: Glucose, Whole Blood 169 mg/dL (60-115)
[2023-09-24] MEDS: Insulin Lispro 100 UNIT/ML 3 ML VIAL SUBCUT ×3 (11:31→20:56)
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
[2023-09-24 16:36] LABS: Glucose, Whole Blood 193 mg/dL (60-115)
[2023-09-24 17:50] VITALS: BP 143/73
--- NOTE | 2023-09-24 18:16 | P.EN_ITS ---
Event Note Date of Service: 09/24/23 Event Note: 68 year old woman seen in follow up for concerns with nausea and food not sitting well per psychiatry. The patient has psychosis and is very tangential in giving history but describes a history of what sounds like multiple ulcers of the GI tract and reportedly ate blueberries for years resolving symptoms. She is also now taking ompeprazole 40mg BID. She reportedly has hiatal hernia per patient report. The patient states that when she eats and drinks, she regur gitates also immediately. This happens especially when drinking water. Denies any dysphagia, globus sensation, abd pain, nausea, vomiting, diarrhea, constipation. States she is concerned the sores are back. At this time, if she is stating and is observed to regurgitate anything PO, especially water, and is already on high dose PPI, would recommend psychiatrist place GI consult for further evaluation, especially given patient is unlikely to discharge from the unit any time soon. For now, continue omeprazole 40mg BID and will order barium swallow. Time Spent With Patient Time: Total time managing care of this patient today ____ minutes.
[2023-09-24 19:40] VITALS: BP 159/72; PULSE 99; RESP 18; TEMP 36.4; O2SAT 97
[2023-09-24 20:03] LABS: Glucose, Whole Blood 229 mg/dL (60-115)
[2023-09-24] MEDS: Atorvastatin Calcium 20 MG TABLET PO (20:56)
[2023-09-24] MEDS: Acetaminophen 325 MG TABLET 650 MG PO (20:56)
[2023-09-24] MEDS: Insulin Glargine,Hum.rec.anlog 100 UNIT/ML 10 ML VIAL 20 UNIT SUBCUT (20:56)
[2023-09-24] MEDS: risperiDONE 2 MG TABLET PO (22:00)
[2023-09-25] MEDS: Omeprazole 20 MG CAPSULE.DR PO ×2 (05:58→17:31)
[2023-09-25 06:24] LABS: Glucose, Whole Blood 146 mg/dL (60-115)
[2023-09-25 10:01] VITALS: BP 168/76; PULSE 102; RESP 16; TEMP 36.2; O2SAT 96
[2023-09-25] MEDS: clonazePAM 0.5 MG TABLET PO ×2 (10:04→21:07)
[2023-09-25] MEDS: Ferrous Sulfate 324 MG TABLET.DR PO (10:04)
[2023-09-25] MEDS: amLODIPine Besylate 5 MG TABLET PO (10:04)
[2023-09-25] MEDS: Magnesium Oxide 400 MG TABLET PO ×2 (10:04→21:07)
[2023-09-25] MEDS: lisinopriL 5 MG TABLET PO (10:05)
[2023-09-25] MEDS: risperiDONE 1 MG TABLET PO (10:05)
[2023-09-25] MEDS: Venlafaxine HCl ER 75 MG CAP.ER.24H PO (10:05)
[2023-09-25] MEDS: metFORMIN HCl ER 500 MG TAB.ER.24H 1000 MG PO ×2 (10:05→21:07)
[2023-09-25] MEDS: Lidocaine 4 % Patch ADH..PATCH 1 PATCH TRANSDERMA (10:07)
[2023-09-25 11:37] LABS: Glucose, Whole Blood 257 mg/dL (60-115)
[2023-09-25] MEDS: Insulin Lispro 100 UNIT/ML 3 ML VIAL SUBCUT ×3 (12:29→21:08)
--- NOTE | 2023-09-25 14:37 | MHC.SLORD ---
Speech Language Pathology Order Status: MBSImP ordered 3/5 as needed. Per hospitalist [place] MANAGER [employer]OCERY consultation on hold pending Barium Swallow results. MANAGER GROCERY to check in w/ provider tomorrow to determine if MANAGER GROCERY consultation and/or if MBS is warranted.
[2023-09-25 16:41] LABS: Glucose, Whole Blood 212 mg/dL (60-115)
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
--- NOTE | 2023-09-25 17:26 | PM.EVENT ---
Event Note Date of Service: 09/25/23 Event Note: Barium swallow showed trace laryngeal penetration and short segment benign stricture of the GE junction versus mild achalasia. Also found moderate sized hiatal hernia and severe GERD. Will get GI consult. Will hold off on speech consult and modified barium swallow at this time. Time Spent With Patient Time: Total time managing care of this patient today ____ minutes.
[2023-09-25 19:40] VITALS: BP 129/62; PULSE 102; RESP 18; TEMP 36.6; O2SAT 96
[2023-09-25 20:10] LABS: Glucose, Whole Blood 226 mg/dL (60-115)
[2023-09-25] MEDS: Atorvastatin Calcium 20 MG TABLET PO (21:06)
[2023-09-25] MEDS: Insulin Glargine,Hum.rec.anlog 100 UNIT/ML 10 ML VIAL 20 UNIT SUBCUT (21:08)
[2023-09-25] MEDS: Loperamide HCl 2 MG CAPSULE PO (23:38)
[2023-09-26] MEDS: traZODone HCL 50 MG TABLET PO (01:24)
[2023-09-26] MEDS: Omeprazole 20 MG CAPSULE.DR PO ×2 (05:26→16:36)
[2023-09-26 06:29] LABS: Glucose, Whole Blood 142 mg/dL (60-115)
[2023-09-26 07:00] VITALS: BMI 35.3
[2023-09-26 07:30] VITALS: BP 115/56; PULSE 87; RESP 16; TEMP 36.4; O2SAT 96
[2023-09-26 08:41] VITALS: BP 130/62; PULSE 97; RESP 16; TEMP 36.7; O2SAT 97
[2023-09-26] MEDS: amLODIPine Besylate 5 MG TABLET PO (08:44)
[2023-09-26] MEDS: Ferrous Sulfate 324 MG TABLET.DR PO (08:44)
[2023-09-26] MEDS: clonazePAM 0.5 MG TABLET PO ×2 (08:45→21:33)
[2023-09-26] MEDS: metFORMIN HCl ER 500 MG TAB.ER.24H 1000 MG PO ×2 (08:45→21:33)
[2023-09-26] MEDS: Magnesium Oxide 400 MG TABLET PO ×2 (08:46→21:33)
[2023-09-26] MEDS: lisinopriL 5 MG TABLET PO (08:46)
[2023-09-26] MEDS: Venlafaxine HCl ER 75 MG CAP.ER.24H PO (08:46)
[2023-09-26] MEDS: risperiDONE 1 MG TABLET PO (08:47)
[2023-09-26] MEDS: Loperamide HCl 2 MG CAPSULE PO (09:14)
[2023-09-26 11:47] LABS: Glucose, Whole Blood 152 mg/dL (60-115)
[2023-09-26 16:20] LABS: Glucose, Whole Blood 236 mg/dL (60-115)
[2023-09-26] MEDS: Insulin Lispro 100 UNIT/ML 3 ML VIAL SUBCUT ×2 (16:34→21:32)
--- NOTE | 2023-09-26 17:18 | HO.PSYCHPN ---
Subjective Subjective Date of Service: 09/26/23 Reason For Visit: Unspecified psychosis Subjective Notes: Conditional Voluntary Interim History: Pt reports having some difficulty sleeping. She continues to report hearing roommate speak in Latvian when roommate not only has severe aphasia but also is Russian speaking only. Some confucianism preoccupation and asks to meet with manager care management. No SI/HI. takes meds as prescribed. Diagnostics Vital Signs (24Hr): Vital Signs - 24 hr 09/25/23 19:40 09/26/23 08:41 Temperature 97.9 F 98.1 F Pulse Rate 102 H 97 Respiratory Rate 18 16 Blood Pressure 129/62 130/62 Pulse Oximetry 96 97 Oxygen Delivery Method Room Air Room Air BMI result Body Mass Index 35.3 Labs 09/27/23 07:59 09/24/23 07:57 Labs: Laboratory Results - last 48 hr 09/24/23 09/25/23 09/25/23 19:57 06:00 11:33 POC Glucose 229 H 146 H 257 H 09/25/23 09/25/23 09/26/23 16:37 19:40 06:15 POC Glucose 212 H 226 H 142 H 09/26/23 09/26/23 11:42 16:14 POC Glucose 152 H 236 H Imaging Radiology Impressions: ITS Impressions Barium Swallow X-Ray 09/25/23 09:20 IMPRESSION: 1. Trace laryngeal penetration with thick barium. No subglottic aspiration. 2. Dilated esophagus. Mild short segment benign stricture at the GE junction versus mild achalasia. 3. Moderate-sized type I hiatal hernia. 4. Severe gastroesophageal reflux. 5. Limited evaluation of the gastric mucosal and duodenal duodenal sweep due to poor tolerance of the effervescent granules, delayed gastric emptying, significant gastroesophageal reflux. Grossly no abnormality seen. This procedure was performed by Smith Alaniz PA-C, and supervised by Dr. Morgan Medications Medications Current Medications Acetaminophen (Acetaminophen 325 Mg Tablet) 650 mg PO Q6H PRN PRN Reason: Headache/Pain Mild Scale (1-3) Last Admin: 09/24/23 20:56 Dose: 650 mg Al Hydroxide/Mg Hydroxide (Magnesium Hydrox/Alum Hydrox 30 Ml Oral.Susp) 30 ml PO Q6H PRN PRN Reason: Heartburn/Nausea Last Admin: 09/18/23 09:59 Dose: 30 ml Amlodipine Besylate (Amlodipine Besylate 5 Mg Tablet) 5 mg PO DAILY [facility]; Protocol Last Admin: 09/26/23 08:44 Dose: 5 mg Atorvastatin Calcium (Atorvastatin Calcium 20 Mg Tablet) 20 mg PO BEDTIME [facility] Last Admin: 09/25/23 21:06 Dose: 20 mg Clonazepam (Clonazepam 0.5 Mg Tablet) 0.5 mg PO BID [facility] Last Admin: 09/26/23 08:45 Dose: 0.5 mg Ferrous Sulfate (Ferrous Sulfate 324 Mg Tablet.) 324 mg PO DAILY [facility] Last Admin: 09/26/23 08:44 Dose: 324 mg Hydroxyzine HCl (Hydroxyzine Hcl 25 Mg Tablet) 25 mg PO Q6H PRN PRN Reason: Anxiety Last Admin: 09/23/23 22:06 Dose: 25 mg Insulin Glargine (Insulin Glargine,Hum.Rec.Anlog 100 Unit/Ml 10 Ml Vial) 20 unit SUBCUT BEDTIME [facility] Last Admin: 09/25/23 21:08 Dose: 20 unit Insulin Human Lispro (Insulin Lispro 100 Unit/Ml 3 Ml Vial) 0 unit SUBCUT QIDACHS [facility]; Protocol Last Admin: 09/26/23 16:34 Dose: 4 unit Lidocaine (Lidocaine 4 % Patch Adh..Patch) 1 patch TRANSDERMA DAILY [facility]; Protocol Last Admin: 09/26/23 08:50 Dose: Not Given Lisinopril (Lisinopril 5 Mg Tablet) 5 mg PO DAILY [facility]; Protocol Last Admin: 09/26/23 08:46 Dose: 5 mg Loperamide HCl (Loperamide Hcl 2 Mg Capsule) 2 mg PO Q6H PRN PRN Reason: diarrhea Last Admin: 09/26/23 09:14 Dose: 2 mg Magnesium Hydroxide (Milk Of Magnesia 30 Ml Oral.Susp) 30 ml PO DAILY PRN PRN Reason: Constipation Magnesium Oxide (Magnesium Oxide 400 Mg Tablet) 400 mg PO BID [facility] Last Admin: 09/26/23 08:46 Dose: 400 mg Meclizine HCl (Meclizine Hcl 12.5 Mg Tablet) 12.5 mg PO Q8H PRN PRN Reason: Vertigo Metformin HCl (Metformin Hcl Er 500 Mg Tab.Er.24h) 1,000 mg PO BID [facility] Last Admin: 09/26/23 08:45 Dose: 1,000 mg Omeprazole (Omeprazole 20 Mg Capsule.) 20 mg PO BID@0630,9260 [facility] Last Admin: 09/26/23 16:36 Dose: 20 mg Risperidone (Risperidone 2 Mg Tablet) 2 mg PO BEDTIME [facility] Last Admin: 09/25/23 21:09 Dose: Not Given Risperidone (Risperidone 1 Mg Tablet) 1 mg PO DAILY [facility] Last Admin: 09/26/23 08:47 Dose: 1 mg Tizanidine HCl (Tizanidine Hcl 4 Mg Tablet) 4 mg PO TID PRN PRN Reason: muscle spasm Last Admin: 09/23/23 11:06 Dose: 4 mg Trazodone HCl (Trazodone Hcl 50 Mg Tablet) 50 mg PO BEDTIME PRN PRN Reason: Insomnia Last Admin: 09/26/23 01:24 Dose: 50 mg Venlafaxine HCl (Venlafaxine Hcl Er 75 Mg Cap.Er.24h) 75 mg PO DAILY [facility] Last Admin: 09/26/23 08:46 Dose: 75 mg Allergies Allergies Allergy/AdvReac Type Severity Reaction Status Date / Time No Known Allergies Allergy Verified 09/16/23 21:45 Assessment & Plan Assessment & Plan (1) Schizophrenia: Status: Acute Code(s): F20.9 - Schizophrenia, unspecified Plan 63 year old female with history of htn, uncontrolled type 2 diabetes, gerd/gastritis, depression, unspecified psychosis, hld, oa, ckd stage 3, tobacco dependence admitted to geriatric psychiatry from [facility] with consult placed to hospitalist service for medical H&P. - increase risperidone to 1mg po daily and 2mg po qhs. monitor Mg. 09/19 continue tx.PLEASE DO NOT INCREASE EFFEXOR IT WILL WORSEN HER PSYCHOSIS AND DELUSIONS! 3: continue current mgmt. 09/21: stable presentation. continue current mgmt. 09/22 continue tx. family meeting to be scheduled. will discuss with hospital ongoing nausea, decrease oral intake. 09/23 continue current medications. GI consult. 09/24 continue tx 09/25 Dr. Alfonso to do endoscopy tomorrow. continue all other meds. Reason for continued inpatient stay Substantial Risk for: inability to function Time Spent With Patient Time: Total time managing care of this patient today ____ minutes.
--- NOTE | 2023-09-26 17:32 | MHC.SHP ---
Pre-Procedural Eval Section A - 24 Hr Update-Section A only Date of Service: 09/27/23 The patient is an INPATIENT: Yes The patient has been examined within 24 hours of the surgical procedure. The History & Physical has been completed within 30 days and I have reviewed it.: Yes Section B - Complete if H&P > 30 days Chief Complaint: Unspecified psychosis Allergies: Allergies Allergy/AdvReac Type Severity Reaction Status Date / Time No Known Allergies Allergy Verified 09/16/23 21:45 Plan I have reviewed the history and physical and performed a pertinent physical examination on my patient. No changes have occurred unless specified. Time Spent With Patient Time: Total time managing care of this patient today ____ minutes.
--- NOTE | 2023-09-26 17:32 | PM.EVENT ---
Event Note Date of Service: 09/26/23 Event Note: GI Consult-Full note dictated Imp: 68 yo female with history of GERD and reflux symptoms, particularly while bending over or lying down. Her Barium swallow describes GERD and a possible stricture at the GE Junction. She also has an anemia with a low normal MCV and low Iron sat. Her B12 and Folate are normal. The stomach and duodenum were not well visualized on the recent UGI series. She does have a history of sores or ulcers by her description. She describes a distant history of a colonoscopy and an EGD but does not recall the findings. Rec: EGD with possible balloon dilation to R/O significant esophagitis,esophageal stricture, Galeano's esophagus, peptic ulcer disease, gastritis, duodenitis, and/or celiac disease. I have ordered a CBC and a Ferritin level for the AM to further assess her anemia. Continue her PPI. I placed her Metformin on hold after MN since she will NPO in the AM. She may need an eventual colonoscopy if she has an iron deficiency anemia and the upper endo is not particularly revealing. Full consent has been obtained from her for this, including risks of bleeding and perforation. Discussed with patient in detail and she is comfortable with this plan. Thanks Time Spent With Patient Time: Total time managing care of this patient today ____ minutes.
[2023-09-26 19:48] VITALS: BP 128/65; PULSE 97; RESP 18; TEMP 36.2; O2SAT 98
[2023-09-26 20:18] LABS: Glucose, Whole Blood 303 mg/dL (60-115)
[2023-09-26] MEDS: Insulin Glargine,Hum.rec.anlog 100 UNIT/ML 10 ML VIAL 20 UNIT SUBCUT (21:32)
[2023-09-26] MEDS: Atorvastatin Calcium 20 MG TABLET PO (21:33)
[2023-09-26] MEDS: risperiDONE 2 MG TABLET PO (21:33)
--- NOTE | 2023-09-26 21:52 | CONS_ITS ---
DATE OF SERVICE: 09/26/2023 REASON FOR CONSULTATION: Gastroesophageal reflux, abnormal barium swallow, and iron-deficiency anemia. HISTORY OF PRESENT ILLNESS: The patient is a 68-year-old female on the psychiatric service, who has been noted to be anemic with borderline MCV and iron studies. She also describes a history of reflux and regurgitation, particularly when she is either bending over or lying down. She does not have frequent episodes of heartburn, but does describe occasional episodes. She has apparently been eating comfortably here and denies any dysphagia to foods nor liquids. She has been on omeprazole here but am not sure if she was on that at home. She describes that her bowel movements are somewhat irregular. She denies any hematochezia nor melena. She denies any abdominal pain nor jaundice. She describes a possible upper endoscopy and colonoscopy many years ago, but does not recall the results. She thinks her mother may have had colon cancer, but there is no other definitive family history of that. She does not appear to be using any chronic aspirin or NSAIDs. She did have a barium swallow yesterday, describing a normal swallowing mechanism. The esophagus appeared to be somewhat dilated, but without any definitive evidence of an esophageal stricture, mass, nor ulceration proximal to the GE junction. She was noted to have a moderate-sized hiatal hernia, reflux, and some narrowing right at the GE junction, above the hiatal hernia. Evaluation of the stomach and duodenum was suboptimal. Laboratories: Her iron was 22 with a TIBC of 282, for an iron saturation of only 8%. A B12 level was normal at 1178, and a folate level was normal at 8.8. An outpatient CBC reports a hemoglobin of 10.6 with an MCV at 81. PRESENT MEDICATIONS: Acetaminophen, amlodipine, atorvastatin, clonazepam, iron, Atarax, insulin, lidocaine patch, Zestril, loperamide p.r.n., magnesium hydroxide p.r.n., meclizine p.r.n., milk of magnesia p.r.n., omeprazole 20 mg b.i.d., risperidone, tizanidine, trazodone and Effexor. PAST MEDICAL HISTORY: Reflux and anemia as above. Hypertension. Diabetes mellitus. GERD. Depression. History of hyperlipidemia. Arthritis. Some renal insufficiency. PAST SURGICAL HISTORY: Include ovarian surgery, cholecystectomy, appendectomy, and umbilical hernia. SOCIAL HISTORY: She is single. She has been a smoker, but currently reports that she smokes primarily marijuana. She does not use any significant amounts of alcohol. REVIEW OF SYSTEMS: CONSTITUTIONAL: She has been feeling tired. CARDIAC: No chest pain. PULMONARY: No coughing or hemoptysis. GI: As above. She denies any significant heartburn nor actual dysphagia. She denies any vomiting. She denies any abdominal pain or jaundice. She denies any known unintentional weight loss. She denies any melena nor hematochezia. PHYSICAL EXAMINATION: GENERAL: The patient is alert. SKIN: Warm and dry. Anicteric sclerae. Moist mucous membranes. NECK: Supple. CARDIAC: S1, S2. ABDOMEN: Soft, nondistended, nontender without mass. EXTREMITIES: Without edema. LABORATORY DATA: Iron studies as above. Hemoglobin 10.6, hematocrit 33%, MCV 81. IMPRESSION: Given the patient's significant upper gastrointestinal complaints of reflux and regurgitation, as well as the abnormal upper GI series with a question of a distal esophageal stricture, I did recommend she undergo an upper endoscopy for further evaluation. I advised that we could perform balloon dilation of the stricture, if one is visualized. I would also recommend this be done for evaluation of her anemia and to rule out anything such as significant esophagitis, Galeano's esophagus, gastritis, duodenitis, ulcer disease, and/or celiac disease. I shall check a repeat CBC and ferritin level for further assessment of her anemia. Depending upon the finding on the endoscopy and her clinical course, we may very well want her to undergo a colonoscopy at some point. I will continue her PPI. Her metformin has been placed on hold as of midnight through tomorrow afternoon. Thank you for the consultation. MD LATONIA Irving/MARTIN / [phone] BLANCA
[2023-09-27] MEDS: Omeprazole 20 MG CAPSULE.DR PO ×2 (05:31→16:56)
[2023-09-27 06:35] LABS: Glucose, Whole Blood 106 mg/dL (60-115)
[2023-09-27 08:05] LABS: MANUAL DIFF FLAG NO
[2023-09-27 08:06] LABS: Basophils Percent Auto 0.3 % (0-2); Eosinophils Absolute Auto 0.1 X10*3/uL (0.0-0.4); Eosinophils Percent Auto 1.5 % (0-4); Hematocrit 28.2 % (37.0-47.0); Hemoglobin 9.2 g/dl (12.0-16.0); Imm Gran Abs Auto 0.03 X10*3/uL (0.00-0.03); Imm Gran Pct Auto 0.3 % (0.0-0.4); Lymphocytes Absolute Auto 3.4 X10*3/uL (1.2-4.9); Lymphocytes Percent Auto 37.5 % (20-40); Mean Corpuscular HGB Conc 32.6 g/dl (31.0-35.0); Mean Corpuscular Volume 79.7 fL (80.0-98.0); Mean Platelet Volume 9.9 fL (9.4-12.3); Monocytes Absolute Auto 0.7 X10*3/uL (0.1-1.2); Monocytes Percent Auto 8.3 % (2-11); Neutrophils Absolute Auto 4.7 x10*3/uL (2.0-8.3); Neutrophils Percent Auto 52.1 % (45-73); Platelet Count 402 X10*3/uL (160-400); Red Blood Count 3.54 X10*6/uL (4.20-5.50); Red Cell Distribution Width 17.7 % (11.0-16.0); White Blood Count 8.9 X10*3/uL (4.8-10.8)
[2023-09-27 08:40] LABS: Ferritin 69 ng/mL (10-250)
[2023-09-27 10:24] VITALS: BP 115/55; PULSE 85; RESP 16; TEMP 36.7; O2SAT 92
[2023-09-27 13:05] VITALS: BP 137/61; PULSE 93; RESP 16; TEMP 36.3; O2SAT 94
[2023-09-27 13:05] LABS: Glucose, Whole Blood 139 mg/dL (60-115)
--- NOTE | 2023-09-27 13:54 | HO.PSYCHPN ---
Subjective Subjective Date of Service: 09/27/23 Reason For Visit: Unspecified psychosis Subjective Notes: Section 8 Interim History: Patient with some psychotic preoccupations was also able to discuss recent barium swallow and her reflux symptoms discussed with patient suggestion regarding not lying down after eating Medication Compliance: Yes Side effects from medications: No Attending Groups: Intermittent Review of Systems Acute medical concerns: No Noted GI note 09/27/23: PPI daily. Advance diet. Will plan for Colonoscopy on 09/29 for further evaluation of her Iron deficiency anemia. I shall place the orders for the prep and diet change for 09/29/23. I did review the need for this with the patient and her sister, Zo, in detail. They are in agreement with the plan. Thanks Mental Status Exam Mental Status Exam Narrative: Appearance: wearing hospital gown, fair hygiene, in NAD Behavior: guarded Psychomotor: no agitation or retardation noted Speech: mostly clear, normal rate/rhythm/volume, spontaneous TP: less disorganized TC: delusional material paranoia Mood: flat Affect: blunted SI: none expressed HI: none expressed VH/AH: none expressed Insight/judgment: poor x 2. Memory/cog: alert, oriented x 3. Diagnostics Vital Signs (24Hr): Vital Signs - 24 hr 09/26/23 19:48 09/27/23 10:24 09/27/23 13:05 Temperature 97.1 F 98.1 F 97.4 F Pulse Rate 97 85 93 Respiratory Rate 18 16 16 Blood Pressure 128/65 115/55 L 137/61 Pulse Oximetry 98 92 94 Oxygen Delivery Method Room Air Room Air Room Air BMI result Body Mass Index 35.3 Labs 09/27/23 07:59 09/24/23 07:57 Labs: Laboratory Results - last 48 hr 09/25/23 09/25/23 09/26/23 16:37 19:40 06:15 WBC RBC Hgb Hct MCV MCH MCHC RDW Plt Count MPV Immature Gran % (Auto) Neut % (Auto) Lymph % (Auto) [place] % (Auto) Eos % (Auto) Baso % (Auto) Lymph # (Auto) [place] # (Auto) Eos # (Auto) Baso # (Auto) Abs Immat Gran (auto) Absolute Neuts (auto) Absolute Nucleated RBC Nucleated RBC % (auto) POC Glucose 212 H 226 H 142 H Ferritin 09/26/23 09/26/2324 11:42 16:14 20:12 WBC RBC Hgb Hct MCV MCH MCHC RDW Plt Count MPV Immature Gran % (Auto) Neut % (Auto) Lymph % (Auto) [place] % (Auto) Eos % (Auto) Baso % (Auto) Lymph # (Auto) [place] # (Auto) Eos # (Auto) Baso # (Auto) Abs Immat Gran (auto) Absolute Neuts (auto) Absolute Nucleated RBC Nucleated RBC % (auto) POC Glucose 152 H 236 H 303 H Ferritin 09/27/23 09/27/23 09/27/23 06:20 07:59 12:59 WBC 8.9 RBC 3.54 L Hgb 9.2 L Hct 28.2 L MCV 79.7 L MCH 26.0 L MCHC 32.6 RDW 17.7 H Plt Count 402 H MPV 9.9 Immature Gran % (Auto) 0.3 Neut % (Auto) 52.1 Lymph % (Auto) 37.5 [place] % (Auto) 8.3 Eos % (Auto) 1.5 Baso % (Auto) 0.3 Lymph # (Auto) 3.4 [place] # (Auto) 0.7 Eos # (Auto) 0.1 Baso # (Auto) 0.0 Abs Immat Gran (auto) 0.03 Absolute Neuts (auto) 4.7 Absolute Nucleated RBC 0.000 Nucleated RBC % (auto) 0.0 POC Glucose 106 139 H Ferritin 69 Imaging Radiology Impressions: ITS Impressions Barium Swallow X-Ray 09/25/23 09:20 IMPRESSION: 1. Trace laryngeal penetration with thick barium. No subglottic aspiration. 2. Dilated esophagus. Mild short segment benign stricture at the GE junction versus mild achalasia. 3. Moderate-sized type I hiatal hernia. 4. Severe gastroesophageal reflux. 5. Limited evaluation of the gastric mucosal and duodenal duodenal sweep due to poor tolerance of the effervescent granules, delayed gastric emptying, significant gastroesophageal reflux. Grossly no abnormality seen. This procedure was performed by Smith Alaniz PA-C, and supervised by Dr. Morgan Medications Medications Current Medications Acetaminophen (Acetaminophen 325 Mg Tablet) 650 mg PO Q6H PRN PRN Reason: Headache/Pain Mild Scale (1-3) Last Admin: 09/24/23 20:56 Dose: 650 mg Al Hydroxide/Mg Hydroxide (Magnesium Hydrox/Alum Hydrox 30 Ml Oral.Susp) 30 ml PO Q6H PRN PRN Reason: Heartburn/Nausea Last Admin: 09/18/23 09:59 Dose: 30 ml Amlodipine Besylate (Amlodipine Besylate 5 Mg Tablet) 5 mg PO DAILY [facility]; Protocol Last Admin: 09/26/23 08:44 Dose: 5 mg Atorvastatin Calcium (Atorvastatin Calcium 20 Mg Tablet) 20 mg PO BEDTIME KALANI Last Admin: 09/26/23 21:33 Dose: 20 mg Clonazepam (Clonazepam 0.5 Mg Tablet) 0.5 mg PO BID [facility] Last Admin: 09/26/23 21:33 Dose: 0.5 mg Hydroxyzine HCl (Hydroxyzine Hcl 25 Mg Tablet) 25 mg PO Q6H PRN PRN Reason: Anxiety Last Admin: 09/23/23 22:06 Dose: 25 mg Insulin Glargine (Insulin Glargine,Hum.Rec.Anlog 100 Unit/Ml 10 Ml Vial) 20 unit SUBCUT BEDTIME [facility] Last Admin: 09/26/23 21:32 Dose: 20 unit Insulin Human Lispro (Insulin Lispro 100 Unit/Ml 3 Ml Vial) 0 unit SUBCUT QIDACHS [facility]; Protocol Last Admin: 09/27/23 13:05 Dose: Not Given Lidocaine (Lidocaine 4 % Patch Adh..Patch) 1 patch TRANSDERMA DAILY [facility]; Protocol Last Admin: 09/26/23 08:50 Dose: Not Given Lisinopril (Lisinopril 5 Mg Tablet) 5 mg PO DAILY [facility]; Protocol Last Admin: 09/26/23 08:46 Dose: 5 mg Loperamide HCl (Loperamide Hcl 2 Mg Capsule) 2 mg PO Q6H PRN PRN Reason: diarrhea Last Admin: 09/26/23 09:14 Dose: 2 mg Magnesium Hydroxide (Milk Of Magnesia 30 Ml Oral.Susp) 30 ml PO DAILY PRN PRN Reason: Constipation Magnesium Oxide (Magnesium Oxide 400 Mg Tablet) 400 mg PO BID [facility] Last Admin: 09/26/23 21:33 Dose: 400 mg Meclizine HCl (Meclizine Hcl 12.5 Mg Tablet) 12.5 mg PO Q8H PRN PRN Reason: Vertigo Metformin HCl (Metformin Hcl Er 500 Mg Tab.Er.24h) 1,000 mg PO BID [facility] Last Admin: 09/26/23 21:33 Dose: 1,000 mg Omeprazole (Omeprazole 20 Mg Capsule.) 20 mg PO BID@0630,1630 [facility] Last Admin: 09/27/23 05:31 Dose: 20 mg Risperidone (Risperidone 2 Mg Tablet) 2 mg PO BEDTIME [facility] Last Admin: 09/26/23 21:33 Dose: 2 mg Risperidone (Risperidone 1 Mg Tablet) 1 mg PO DAILY [facility] Last Admin: 09/26/23 08:47 Dose: 1 mg Sodium Biphosphate/Sodium Phosphate (Sodium Phosphate,[place]-Dibasic 133 Ml Enema) 133 ml [place] ONCE PRN PRN Reason: Poor Colonoscopy Prep Results Tizanidine HCl (Tizanidine Hcl 4 Mg Tablet) 4 mg PO TID PRN PRN Reason: muscle spasm Last Admin: 09/23/23 11:06 Dose: 4 mg Trazodone HCl (Trazodone Hcl 50 Mg Tablet) 50 mg PO BEDTIME PRN PRN Reason: Insomnia Last Admin: 09/26/23 01:24 Dose: 50 mg Venlafaxine HCl (Venlafaxine Hcl Er 75 Mg Cap.Er.24h) 75 mg PO DAILY [facility] Last Admin: 09/26/23 08:46 Dose: 75 mg Allergies Allergies Allergy/AdvReac Type Severity Reaction Status Date / Time No Known Allergies Allergy Verified 09/16/23 21:45 Assessment & Plan Assessment & Plan (1) Schizophrenia: Status: Acute Code(s): F20.9 - Schizophrenia, unspecified Plan 63 year old female with history of htn, uncontrolled type 2 diabetes, gerd/gastritis, depression, unspecified psychosis, hld, oa, ckd stage 3, tobacco dependence [place] [facility] [place] to [place]ist service for medical H&P. - increase risperidone to 1mg po daily and 2mg po qhs. monitor Mg. 09/19 continue tx.PLEASE DO NOT INCREASE EFFEXOR IT WILL WORSEN HER PSYCHOSIS AND DELUSIONS! 3: continue current mgmt. 3: stable presentation. continue current mgmt. 09/22 continue tx. family meeting to be scheduled. will discuss with hospital ongoing nausea, decrease oral intake. 09/23 continue current medications. GI consult. 09/24 continue tx 09/25 Dr. Alfonso to do endoscopy tomorrow. continue all other meds. 09/27/23 cont risperadol Reason for continued inpatient stay Substantial Risk for: inability to function, rapid decompensation and med/psych decompensation Time Spent With Patient Time: Total time managing care of this patient today ____ minutes.
[2023-09-27] MEDS: amLODIPine Besylate 5 MG TABLET PO (14:34)
[2023-09-27] MEDS: Venlafaxine HCl ER 75 MG CAP.ER.24H PO (14:34)
[2023-09-27] MEDS: Magnesium Oxide 400 MG TABLET PO ×2 (14:34→20:14)
[2023-09-27] MEDS: lisinopriL 5 MG TABLET PO (14:35)
[2023-09-27 16:31] LABS: Glucose, Whole Blood 281 mg/dL (60-115)
[2023-09-27] MEDS: Insulin Lispro 100 UNIT/ML 3 ML VIAL SUBCUT ×2 (16:55→20:13)
[2023-09-27 18:00] VITALS: BP 126/58; PULSE 105; RESP 18; TEMP 36.6; O2SAT 96
[2023-09-27 20:02] LABS: Glucose, Whole Blood 273 mg/dL (60-115)
[2023-09-27] MEDS: Insulin Glargine,Hum.rec.anlog 100 UNIT/ML 10 ML VIAL 20 UNIT SUBCUT (20:12)
[2023-09-27] MEDS: Atorvastatin Calcium 20 MG TABLET PO (20:14)
[2023-09-27] MEDS: metFORMIN HCl ER 500 MG TAB.ER.24H 1000 MG PO (20:20)
[2023-09-27] MEDS: risperiDONE 2 MG TABLET PO (21:34)
[2023-09-28] MEDS: clonazePAM 0.5 MG TABLET PO ×2 (01:10→21:41)
[2023-09-28 06:00] VITALS: BP 118/56; PULSE 88; RESP 16; TEMP 36.6; O2SAT 96
[2023-09-28] MEDS: Omeprazole 20 MG CAPSULE.DR PO ×2 (06:20→16:51)
[2023-09-28 07:13] LABS: Glucose, Whole Blood 89 mg/dL (60-115)
[2023-09-28] MEDS: Insulin Lispro 100 UNIT/ML 3 ML VIAL SUBCUT ×4 (08:22→21:43)
[2023-09-28] MEDS: lisinopriL 5 MG TABLET PO (08:23)
[2023-09-28] MEDS: Magnesium Oxide 400 MG TABLET PO ×2 (08:25→21:41)
[2023-09-28] MEDS: amLODIPine Besylate 5 MG TABLET PO (08:25)
[2023-09-28] MEDS: Venlafaxine HCl ER 75 MG CAP.ER.24H PO (08:25)
[2023-09-28] MEDS: risperiDONE 1 MG TABLET PO (08:25)
--- NOTE | 2023-09-28 10:50 | P.PNPSI_ITS ---
Subjective Subjective Date of Service: 09/28/23 Reason For Visit: Unspecified psychosis Subjective Notes: Conditional Voluntary Interim History: met with patient. Discussed with Nursing. No management issues. No longer requiring lidocaine patch. Placement challenges and has at times been stating the facility are killing people. With scientific writer reports that she has been treated well, has no concerns regarding staff. Sleeping well. No medication concerns. Does report that her neck pain is much better. Medication Compliance: Yes Side effects from medications: No Attending Groups: Intermittent Review of Systems Acute medical concerns: No Noted GI note 09/27/23: PPI daily. Advance diet. Will plan for Colonoscopy on 09/29 for further evaluation of her Iron deficiency anemia. I shall place the orders for the prep and diet change for 09/29/23. I did review the need for this with the patient and her sister, Zo, in detail. They are in agreement with the plan. Thanks Review of Systems Review of Systems Unremarkable Mental Status Exam Mental Status Exam Narrative: Appearance: wearing hospital gown, fair hygiene, in NAD Behavior: guarded Psychomotor: no agitation or retardation noted Speech: mostly clear, normal rate/rhythm/volume, spontaneous TP: less disorganized TC: no paranoia or delusions expressed Mood: not assessed Affect: blunted SI: none expressed HI: none expressed VH/AH: none expressed Insight/judgment: poor x 2. Memory/cog: alert, oriented x 3. Diagnostics Vital Signs (24Hr): Vital Signs - 24 hr 09/27/23 13:05 09/27/23 18:00 09/28/23 06:00 Temperature 97.4 F 97.9 F 97.8 F Pulse Rate 93 105 H 88 Respiratory Rate 16 18 16 Blood Pressure 137/61 126/58 L 118/56 L Pulse Oximetry 94 96 96 Oxygen Delivery Method Room Air Room Air Room Air BMI result Body Mass Index 35.3 Labs 09/27/23 07:59 09/24/23 07:57 Labs: Laboratory Results - last 48 hr 09/26/23 09/26/23 09/26/23 11:42 16:14 20:12 WBC RBC Hgb Hct MCV MCH MCHC RDW Plt Count MPV Immature Gran % (Auto) Neut % (Auto) Lymph % (Auto) [place] % (Auto) Eos % (Auto) Baso % (Auto) Lymph # (Auto) [place] # (Auto) Eos # (Auto) Baso # (Auto) Abs Immat Gran (auto) Absolute Neuts (auto) Absolute Nucleated RBC Nucleated RBC % (auto) POC Glucose 152 H 236 H 303 H Ferritin 09/27/23 09/27/23 09/27/23 06:20 07:59 12:59 WBC 8.9 RBC 3.54 L Hgb 9.2 L Hct 28.2 L MCV 79.7 L MCH 26.0 L MCHC 32.6 RDW 17.7 H Plt Count 402 H MPV 9.9 Immature Gran % (Auto) 0.3 Neut % (Auto) 52.1 Lymph % (Auto) 37.5 [place] % (Auto) 8.3 Eos % (Auto) 1.5 Baso % (Auto) 0.3 Lymph # (Auto) 3.4 [place] # (Auto) 0.7 Eos # (Auto) 0.1 Baso # (Auto) 0.0 Abs Immat Gran (auto) 0.03 Absolute Neuts (auto) 4.7 Absolute Nucleated RBC 0.000 Nucleated RBC % (auto) 0.0 POC Glucose 106 139 H Ferritin 69 09/27/23 09/27/23 09/28/23 16:18 19:54 06:31 WBC RBC Hgb Hct MCV MCH MCHC RDW Plt Count MPV Immature Gran % (Auto) Neut % (Auto) Lymph % (Auto) [place] % (Auto) Eos % (Auto) Baso % (Auto) Lymph # (Auto) [place] # (Auto) Eos # (Auto) Baso # (Auto) Abs Immat Gran (auto) Absolute Neuts (auto) Absolute Nucleated RBC Nucleated RBC % (auto) POC Glucose 281 H 273 H 89 Ferritin Imaging Radiology Impressions: ITS Impressions Barium Swallow X-Ray 09/25/23 09:20 IMPRESSION: 1. Trace laryngeal penetration with thick barium. No subglottic aspiration. 2. Dilated esophagus. Mild short segment benign stricture at the GE junction versus mild achalasia. 3. Moderate-sized type I hiatal hernia. 4. Severe gastroesophageal reflux. 5. Limited evaluation of the gastric mucosal and duodenal duodenal sweep due to poor tolerance of the effervescent granules, delayed gastric emptying, significant gastroesophageal reflux. Grossly no abnormality seen. This procedure was performed by Smith Alaniz PA-C, and supervised by Dr. Morgan Medications Medications Current Medications Acetaminophen (Acetaminophen 325 Mg Tablet) 650 mg PO Q6H PRN PRN Reason: Headache/Pain Mild Scale (1-3) Last Admin: 09/24/23 20:56 Dose: 650 mg Al Hydroxide/Mg Hydroxide (Magnesium Hydrox/Alum Hydrox 30 Ml Oral.Susp) 30 ml PO Q6H PRN PRN Reason: Heartburn/Nausea Last Admin: 09/18/23 09:59 Dose: 30 ml Amlodipine Besylate (Amlodipine Besylate 5 Mg Tablet) 5 mg PO DAILY [facility]; Protocol Last Admin: 09/28/23 08:25 Dose: 5 mg Atorvastatin Calcium (Atorvastatin Calcium 20 Mg Tablet) 20 mg PO BEDTIME [facility] Last Admin: 09/27/23 20:14 Dose: 20 mg Bisacodyl (Bisacodyl 5 Mg Tablet.Dr) 10 mg PO ONCE ONE Stop: 09/29/23 12:01 Bisacodyl (Bisacodyl 5 Mg Tablet.Dr) 10 mg PO ONCE ONE Stop: 09/29/23 19:01 Clonazepam (Clonazepam 0.5 Mg Tablet) 0.5 mg PO BID [facility] Last Admin: 09/28/23 08:29 Dose: Not Given Hydroxyzine HCl (Hydroxyzine Hcl 25 Mg Tablet) 25 mg PO Q6H PRN PRN Reason: Anxiety Last Admin: 09/23/23 22:06 Dose: 25 mg Insulin Glargine (Insulin Glargine,Hum.Rec.Anlog 100 Unit/Ml 10 Ml Vial) 20 unit SUBCUT BEDTIME [facility] Last Admin: 09/27/23 20:12 Dose: 20 unit Insulin Human Lispro (Insulin Lispro 100 Unit/Ml 3 Ml Vial) 0 unit SUBCUT QIDACHS [facility]; Protocol Last Admin: 09/28/23 08:22 Dose: 2 unit Lidocaine (Lidocaine 4 % Patch Adh..Patch) 1 patch TRANSDERMA DAILY [facility]; Protocol Last Admin: 09/28/23 08:23 Dose: Not Given Lisinopril (Lisinopril 5 Mg Tablet) 5 mg PO DAILY [facility]; Protocol Last Admin: 09/28/23 08:23 Dose: 5 mg Magnesium Hydroxide (Milk Of Magnesia 30 Ml Oral.Susp) 30 ml PO DAILY PRN PRN Reason: Constipation Magnesium Oxide (Magnesium Oxide 400 Mg Tablet) 400 mg PO BID [facility] Last Admin: 09/28/23 08:25 Dose: 400 mg Meclizine HCl (Meclizine Hcl 12.5 Mg Tablet) 12.5 mg PO Q8H PRN PRN Reason: Vertigo Metformin HCl (Metformin Hcl Er 500 Mg Tab.Er.24h) 1,000 mg PO BID [facility] Last Admin: 09/27/23 20:20 Dose: 1,000 mg Omeprazole (Omeprazole 20 Mg Capsule.Dr) 20 mg PO BID@0630,1630 [facility] Last Admin: 09/28/23 06:20 Dose: 20 mg Polyethylene Glycol/Electrolytes (Peg 3350/Na Sulf,Bicarb,Cl/Kcl 4,000 Ml Soln.Recon) 4,000 ml PO ONCE ONE Stop: 09/29/23 15:01 Risperidone (Risperidone 2 Mg Tablet) 2 mg PO BEDTIME [facility] Last Admin: 09/27/23 21:34 Dose: 2 mg Risperidone (Risperidone 1 Mg Tablet) 1 mg PO DAILY [facility] Last Admin: 09/28/23 08:25 Dose: 1 mg Sodium Biphosphate/Sodium Phosphate (Sodium Phosphate,[place]-Dibasic 133 Ml Enema) 133 ml [place] ONCE PRN PRN Reason: Poor Colonoscopy Prep Results Tizanidine HCl (Tizanidine Hcl 4 Mg Tablet) 4 mg PO TID PRN PRN Reason: muscle spasm Last Admin: 09/23/23 11:06 Dose: 4 mg Trazodone HCl (Trazodone Hcl 50 Mg Tablet) 50 mg PO BEDTIME PRN PRN Reason: Insomnia Last Admin: 09/26/23 01:24 Dose: 50 mg Venlafaxine HCl (Venlafaxine Hcl Er 75 Mg Cap.Er.24h) 75 mg PO DAILY [facility] Last Admin: 09/28/23 08:25 Dose: 75 mg Allergies Allergies Allergy/AdvReac Type Severity Reaction Status Date / Time No Known Allergies Allergy Verified 09/16/23 21:45 Assessment & Plan Assessment & Plan (1) Schizophrenia: Status: Acute Code(s): F20.9 - Schizophrenia, unspecified Plan 63 year old female with history of htn, uncontrolled type 2 diabetes, gerd/gastritis, depression, unspecified psychosis, hld, oa, ckd stage 3, tobacco dependence admitted to geriatric psychiatry from [facility] [place] consult placed to hospitalist service for medical H&P. - increase risperidone to 1mg po daily and 2mg po qhs. monitor Mg. 09/19 continue tx.PLEASE DO NOT INCREASE EFFEXOR IT WILL WORSEN HER PSYCHOSIS AND DELUSIONS! 09/20: continue current mgmt. 09/21: stable presentation. continue current mgmt. 09/22 continue tx. family meeting to be scheduled. will discuss with hospital ongoing nausea, decrease oral intake. 09/23 continue current medications. GI consult. 09/24 continue tx 09/25 Dr. Alfonso to do endoscopy tomorrow. continue all other meds. 09/27/2022: No changes, noted GI note Reason for continued inpatient stay Substantial Risk for: inability to function Time Spent With Patient Time: Total time managing care of this patient today ____ minutes.
[2023-09-28 11:22] LABS: Glucose, Whole Blood 174 mg/dL (60-115)
[2023-09-28] MEDS: metFORMIN HCl ER 500 MG TAB.ER.24H 1000 MG PO ×2 (11:40→21:42)
[2023-09-28] MEDS: Acetaminophen 325 MG TABLET 650 MG PO (15:56)
[2023-09-28 16:19] LABS: Glucose, Whole Blood 177 mg/dL (60-115)
--- NOTE | 2023-09-28 16:49 | MHC.SHP ---
Pre-Procedural Eval Section A - 24 Hr Update-Section A only Date of Service: 09/30/23 The patient is an INPATIENT: Yes The patient has been examined within 24 hours of the surgical procedure. The History & Physical has been completed within 30 days and I have reviewed it.: Yes Section B - Complete if H&P > 30 days Chief Complaint: Unspecified psychosis Allergies: Allergies Allergy/AdvReac Type Severity Reaction Status Date / Time No Known Allergies Allergy Verified 09/16/23 21:45 Plan I have reviewed the history and physical and performed a pertinent physical examination on my patient. No changes have occurred unless specified. Time Spent With Patient Time: Total time managing care of this patient today ____ minutes.
[2023-09-28 18:00] VITALS: BP 151/70; PULSE 99; RESP 17; TEMP 36.4; O2SAT 98
[2023-09-28 19:53] LABS: Glucose, Whole Blood 178 mg/dL (60-115)
[2023-09-28] MEDS: Atorvastatin Calcium 20 MG TABLET PO (21:40)
[2023-09-28] MEDS: Insulin Glargine,Hum.rec.anlog 100 UNIT/ML 10 ML VIAL 20 UNIT SUBCUT (21:43)
[2023-09-29] MEDS: Omeprazole 20 MG CAPSULE.DR PO ×2 (06:09→17:07)
[2023-09-29 06:40] LABS: Glucose, Whole Blood 110 mg/dL (60-115)
[2023-09-29] MEDS: lisinopriL 5 MG TABLET PO (08:34)
[2023-09-29] MEDS: Venlafaxine HCl ER 75 MG CAP.ER.24H PO (08:35)
[2023-09-29] MEDS: Magnesium Oxide 400 MG TABLET PO ×2 (08:35→20:49)
[2023-09-29] MEDS: amLODIPine Besylate 5 MG TABLET PO (08:35)
[2023-09-29] MEDS: risperiDONE 1 MG TABLET PO (08:35)
[2023-09-29 11:35] LABS: Glucose, Whole Blood 200 mg/dL (60-115)
[2023-09-29] MEDS: Insulin Lispro 100 UNIT/ML 3 ML VIAL SUBCUT ×2 (11:38→20:52)
[2023-09-29] MEDS: bisacodyL 5 MG TABLET.DR 10 MG PO ×2 (11:47→18:38)
--- NOTE | 2023-09-29 14:08 | P.PNPSI_ITS ---
Subjective Subjective Date of Service: 09/29/23 Reason For Visit: Unspecified psychosis Subjective Notes: Conditional Voluntary Interim History: Attending groups. Colonoscopy scheduled tomorrow (GI consult 09/26 and they will enter relevant orders etc..). Nursing and pt aware. No management issues. No overt psychosis noted. Sleeping well. No medication concerns. Medication Compliance: Yes Side effects from medications: No Attending Groups: Yes Review of Systems Colonoscopy scheduled tomorrow (GI consult 09/26 and they will enter relevant orders etc..). Nursing and pt aware. Review of Systems Review of Systems Unremarkable Mental Status Exam Mental Status Exam Narrative: Appearance: wearing hospital gown, fair hygiene, in NAD Behavior: guarded Psychomotor: no agitation or retardation noted Speech: mostly clear, normal rate/rhythm/volume, spontaneous TP: less disorganized TC: delusional material paranoia Mood: flat Affect: blunted SI: none expressed HI: none expressed VH/AH: none expressed Insight/judgment: poor x 2. Memory/cog: alert, oriented x 3. Diagnostics Vital Signs (24Hr): Vital Signs - 24 hr 09/28/23 18:00 Temperature 97.6 F Pulse Rate 99 Respiratory Rate 17 Blood Pressure 151/70 H Pulse Oximetry 98 Oxygen Delivery Method Room Air BMI result Body Mass Index 35.3 Labs 09/27/23 07:59 09/24/23 07:57 Labs: Laboratory Results - last 48 hr 09/27/23 09/27/23 09/28/23 16:18 19:54 06:31 POC Glucose 281 H 273 H 89 09/28/23 09/28/23 09/28/23 11:15 16:00 19:41 POC Glucose 174 H 177 H 178 H 09/29/23 09/29/23 06:11 11:25 POC Glucose 110 200 H Imaging Radiology Impressions: ITS Impressions Barium Swallow X-Ray 09/25/23 09:20 IMPRESSION: 1. Trace laryngeal penetration with thick barium. No subglottic aspiration. 2. Dilated esophagus. Mild short segment benign stricture at the GE junction versus mild achalasia. 3. Moderate-sized type I hiatal hernia. 4. Severe gastroesophageal reflux. 5. Limited evaluation of the gastric mucosal and duodenal duodenal sweep due to poor tolerance of the effervescent granules, delayed gastric emptying, significant gastroesophageal reflux. Grossly no abnormality seen. This procedure was performed by Smith Alaniz PA-C, and supervised by Dr. Morgan Medications Medications Current Medications Acetaminophen (Acetaminophen 325 Mg Tablet) 650 mg PO Q6H PRN PRN Reason: Headache/Pain Mild Scale (1-3) Last Admin: 09/28/23 15:56 Dose: 650 mg Al Hydroxide/Mg Hydroxide (Magnesium Hydrox/Alum Hydrox 30 Ml Oral.Susp) 30 ml PO Q6H PRN PRN Reason: Heartburn/Nausea Last Admin: 09/18/23 09:59 Dose: 30 ml Amlodipine Besylate (Amlodipine Besylate 5 Mg Tablet) 5 mg PO DAILY [facility]; Protocol Last Admin: 09/29/23 08:35 Dose: 5 mg Atorvastatin Calcium (Atorvastatin Calcium 20 Mg Tablet) 20 mg PO BEDTIME KALANI Last Admin: 09/28/23 21:40 Dose: 20 mg Bisacodyl (Bisacodyl 5 Mg Tablet.Dr) 10 mg PO ONCE ONE Stop: 09/29/23 19:01 Clonazepam (Clonazepam 0.5 Mg Tablet) 0.5 mg PO BID KALANI Last Admin: 09/29/23 08:33 Dose: Not Given Hydroxyzine HCl (Hydroxyzine Hcl 25 Mg Tablet) 25 mg PO Q6H PRN PRN Reason: Anxiety Last Admin: 09/23/23 22:06 Dose: 25 mg Insulin Glargine (Insulin Glargine,Hum.Rec.Anlog 100 Unit/Ml 10 Ml Vial) 20 unit SUBCUT BEDTIME KALANI Last Admin: 09/28/23 21:43 Dose: 20 unit Insulin Human Lispro (Insulin Lispro 100 Unit/Ml 3 Ml Vial) 0 unit SUBCUT QIDACHS [facility]; Protocol Last Admin: 09/29/23 11:38 Dose: 2 unit Lidocaine (Lidocaine 4 % Patch Adh..Patch) 1 patch TRANSDERMA DAILY KALANI; Protocol Last Admin: 09/29/23 08:32 Dose: Not Given Lisinopril (Lisinopril 5 Mg Tablet) 5 mg PO DAILY [facility]; Protocol Last Admin: 09/29/23 08:34 Dose: 5 mg Magnesium Hydroxide (Milk Of Magnesia 30 Ml Oral.Susp) 30 ml PO DAILY PRN PRN Reason: Constipation Magnesium Oxide (Magnesium Oxide 400 Mg Tablet) 400 mg PO BID [facility] Last Admin: 09/29/23 08:35 Dose: 400 mg Meclizine HCl (Meclizine Hcl 12.5 Mg Tablet) 12.5 mg PO Q8H PRN PRN Reason: Vertigo Metformin HCl (Metformin Hcl Er 500 Mg Tab.Er.24h) 1,000 mg PO BID [facility] Last Admin: 09/29/23 11:12 Dose: Not Given Omeprazole (Omeprazole 20 Mg Capsule.Dr) 20 mg PO BID@0630,1630 [facility] Last Admin: 09/29/23 06:09 Dose: 20 mg Polyethylene Glycol/Electrolytes (Peg 3350/Na Sulf,Bicarb,Cl/Kcl 4,000 Ml Soln.Recon) 4,000 ml PO ONCE ONE Stop: 09/29/23 15:01 Risperidone (Risperidone 2 Mg Tablet) 2 mg PO BEDTIME [facility] Last Admin: 09/28/23 21:44 Dose: Not Given Risperidone (Risperidone 1 Mg Tablet) 1 mg PO DAILY [facility] Last Admin: 09/29/23 08:35 Dose: 1 mg Sodium Biphosphate/Sodium Phosphate (Sodium Phosphate,O'Brien-Dibasic 133 Ml Enema) 133 ml [place] ONCE PRN PRN Reason: Poor Colonoscopy Prep Results Tizanidine HCl (Tizanidine Hcl 4 Mg Tablet) 4 mg PO TID PRN PRN Reason: muscle spasm Last Admin: 09/23/23 11:06 Dose: 4 mg Trazodone HCl (Trazodone Hcl 50 Mg Tablet) 50 mg PO BEDTIME PRN PRN Reason: Insomnia Last Admin: 09/26/23 01:24 Dose: 50 mg Venlafaxine HCl (Venlafaxine Hcl Er 75 Mg Cap.Er.24h) 75 mg PO DAILY [facility] Last Admin: 09/29/23 08:35 Dose: 75 mg Allergies Allergies Allergy/AdvReac Type Severity Reaction Status Date / Time No Known Allergies Allergy Verified 09/16/23 21:45 Assessment & Plan Assessment & Plan (1) Schizophrenia: Status: Acute Code(s): F20.9 - Schizophrenia, unspecified Plan 63 year old female with history of htn, uncontrolled type 2 diabetes, gerd/gastritis, depression, unspecified psychosis, hld, oa, ckd stage 3, tobacco dependence admitted to geriatric psychiatry from [facility] with consult placed to hospitalist service for medical H&P. - increase risperidone to 1mg po daily and 2mg po qhs. monitor Mg. 09/19 continue tx.PLEASE DO NOT INCREASE EFFEXOR IT WILL WORSEN HER PSYCHOSIS AND DELUSIONS! 09/20: continue current mgmt. 09/21: stable presentation. continue current mgmt. 09/22 continue tx. family meeting to be scheduled. will discuss with hospital ongoing nausea, decrease oral intake. 09/23 continue current medications. GI consult. 09/24 continue tx 09/25 Dr. Alfonso to do endoscopy tomorrow. continue all other meds. 09/27/2309/28: NO med changes. Colonoscopy scheduled tomorrow (GI consult 09/26 and they will enter relevant orders etc..). Nursing and pt aware. Reason for continued inpatient stay Substantial Risk for: rapid decompensation Time Spent With Patient Time: Total time managing care of this patient today ____ minutes.
[2023-09-29] MEDS: PEG 3350/Na Sulf,Bicarb,Cl/KCL 4,000 ML SOLN.RECON 4000 ML PO (14:49)
[2023-09-29 16:22] LABS: Glucose, Whole Blood 142 mg/dL (60-115)
[2023-09-29 18:00] VITALS: BP 122/62; PULSE 86; RESP 18; TEMP 37.2; O2SAT 100
--- NOTE | 2023-09-29 18:43 | PC.NURSE ---
Patient completed bowel prep for colonoscopy. Continues on clear liquids until midnight. Patient states stool is clear liquid. Tolerated prep well.
[2023-09-29 20:25] LABS: Glucose, Whole Blood 235 mg/dL (60-115)
[2023-09-29] MEDS: risperiDONE 2 MG TABLET PO (20:49)
[2023-09-29] MEDS: Atorvastatin Calcium 20 MG TABLET PO (20:49)
[2023-09-29] MEDS: clonazePAM 0.5 MG TABLET PO (20:50)
[2023-09-30 06:00] VITALS: BP 108/62; PULSE 92; RESP 18; TEMP 36.3; O2SAT 93
[2023-09-30 06:28] LABS: Glucose, Whole Blood 140 mg/dL (60-115)
[2023-09-30 10:57] VITALS: BP 154/69; PULSE 87; RESP 16; TEMP 36.3; O2SAT 94
[2023-09-30] MEDS: Venlafaxine HCl ER 75 MG CAP.ER.24H PO (11:11)
[2023-09-30] MEDS: Magnesium Oxide 400 MG TABLET PO ×2 (11:11→21:00)
[2023-09-30] MEDS: lisinopriL 5 MG TABLET PO (11:11)
[2023-09-30] MEDS: amLODIPine Besylate 5 MG TABLET PO (11:11)
[2023-09-30 11:16] LABS: MANUAL DIFF FLAG NO
[2023-09-30] MEDS: Omeprazole 20 MG CAPSULE.DR PO ×2 (11:19→17:17)
[2023-09-30 11:25] LABS: Basophils Percent Auto 0.3 % (0-2); Eosinophils Absolute Auto 0.1 X10*3/uL (0.0-0.4); Hematocrit 28.8 % (37.0-47.0); Hemoglobin 9.2 g/dl (12.0-16.0); Imm Gran Abs Auto 0.03 X10*3/uL (0.00-0.03); Imm Gran Pct Auto 0.3 % (0.0-0.4); Lymphocytes Absolute Auto 2.6 X10*3/uL (1.2-4.9); Lymphocytes Percent Auto 28.9 % (20-40); Mean Corpuscular HGB Conc 31.9 g/dl (31.0-35.0); Mean Corpuscular Hemoglobin 25.4 pg (27.0-33.0); Mean Corpuscular Volume 79.6 fL (80.0-98.0); Mean Platelet Volume 10.1 fL (9.4-12.3); Monocytes Absolute Auto 0.6 X10*3/uL (0.1-1.2); Monocytes Percent Auto 7.1 % (2-11); Neutrophils Absolute Auto 5.6 x10*3/uL (2.0-8.3); Neutrophils Percent Auto 62.4 % (45-73); Platelet Count 434 X10*3/uL (160-400); Red Blood Count 3.62 X10*6/uL (4.20-5.50); Red Cell Distribution Width 17.4 % (11.0-16.0); White Blood Count 8.9 X10*3/uL (4.8-10.8)
[2023-09-30 11:40] LABS: Glucose, Whole Blood 161 mg/dL (60-115)
[2023-09-30 11:47] LABS: Anion Gap 13 (12-20); Blood Urea Nitrogen 8 mg/dL (9-16); Calcium 9.1 mg/dL (8.4-10.2); Carbon Dioxide 30 mmol/L (22-29); Chloride 103 mmol/L (96-108); Creatinine Clr Calc Pharmacy 54.7; Estimated Glomerular Filt Rate 55; Glucose Fasting 177 mg/dL (60-99); Potassium 4.3 mmol/L (3.3-5.1); Sodium 142 mmol/L (135-145)
[2023-09-30] MEDS: Insulin Lispro 100 UNIT/ML 3 ML VIAL SUBCUT ×3 (12:19→20:59)
[2023-09-30] MEDS: Ferrous Sulfate 324 MG TABLET.DR PO (14:08)
--- NOTE | 2023-09-30 14:12 | P.PNPSI_ITS ---
Subjective Subjective Date of Service: 09/30/23 Reason For Visit: Unspecified psychosis Subjective Notes: Conditional Voluntary Interim History: Pt had colonoscopy this AM. Per Dr. Alfonso no abnormalities. Pt started on iron supplement. Pt asks again about venlafaxine. She reports wave coming to her brain. She denies pain. She became somewhat agitated in that she she reports she does not need antipsychotic, insists she needs mostly antidepressant. Explained once again that she had psychosis and delusions. She also reports she is concern about the blood pressure medications. She reports in particular lisinorpil had been stopped due to kidney injury. Tried to explain to pt that in acute kidney injury lisinopril is often help due to risk of hyperkalemia, however, her kidney function is stable and that risk is less. Pt states she wants to go natural and not take any medications including medications for medical conditions as well as psych. She has refused some doses of risperidone as well as of clonazepam more recently. Medication Compliance: Intermittent Mental Status Exam Mental Status Exam Narrative: Appearance: wearing hospital gown, fair hygiene, in NAD Behavior: guarded Psychomotor: no agitation or retardation noted Speech: mostly clear, normal rate/rhythm/volume, spontaneous TP: less disorganized TC: delusional material paranoia Mood: flat Affect: blunted SI: none expressed HI: none expressed VH/AH: none expressed Insight/judgment: poor x 2. Memory/cog: alert, oriented x 3. Diagnostics Vital Signs (24Hr): Vital Signs - 24 hr 09/29/23 18:00 09/30/23 06:00 09/30/23 10:57 Temperature 98.9 F 97.3 F 97.4 F Pulse Rate 86 92 87 Respiratory Rate 18 18 16 Blood Pressure 122/62 108/62 154/69 H Pulse Oximetry 100 93 94 Oxygen Delivery Method Room Air Room Air Room Air BMI result Body Mass Index 35.3 Labs 09/30/23 11:11 09/30/23 11:11 Labs: Laboratory Results - last 48 hr 09/28/23 09/28/23 09/29/23 16:00 19:41 06:11 WBC RBC Hgb Hct MCV MCH MCHC RDW Plt Count MPV Immature Gran % (Auto) Neut % (Auto) Lymph % (Auto) Davidson % (Auto) Eos % (Auto) Baso % (Auto) Lymph # (Auto) Davidson # (Auto) Eos # (Auto) Baso # (Auto) Abs Immat Gran (auto) Absolute Neuts (auto) Absolute Nucleated RBC Nucleated RBC % (auto) Sodium Potassium Chloride Carbon Dioxide Anion Gap BUN Creatinine Estim Creat Clear Calc Estimated GFR POC Glucose 177 H 178 H 110 Fasting Glucose Calcium 09/29/23 09/29/23 09/29/23 11:25 16:13 20:19 WBC RBC Hgb Hct MCV MCH MCHC RDW Plt Count MPV Immature Gran % (Auto) Neut % (Auto) Lymph % (Auto) Davidson % (Auto) Eos % (Auto) Baso % (Auto) Lymph # (Auto) Davidson # (Auto) Eos # (Auto) Baso # (Auto) Abs Immat Gran (auto) Absolute Neuts (auto) Absolute Nucleated RBC Nucleated RBC % (auto) Sodium Potassium Chloride Carbon Dioxide Anion Gap BUN Creatinine Estim Creat Clear Calc Estimated GFR POC Glucose 200 H 142 H 235 H Fasting Glucose Calcium 09/30/23 09/30/23 09/30/23 06:03 11:11 11:27 WBC 8.9 RBC 3.62 L Hgb 9.2 L Hct 28.8 L MCV 79.6 L MCH 25.4 L MCHC 31.9 RDW 17.4 H Plt Count 434 H MPV 10.1 Immature Gran % (Auto) 0.3 Neut % (Auto) 62.4 Lymph % (Auto) 28.9 Davidson % (Auto) 7.1 Eos % (Auto) 1.0 Baso % (Auto) 0.3 Lymph # (Auto) 2.6 Davidson # (Auto) 0.6 Eos # (Auto) 0.1 Baso # (Auto) 0.0 Abs Immat Gran (auto) 0.03 Absolute Neuts (auto) 5.6 Absolute Nucleated RBC 0.000 Nucleated RBC % (auto) 0.0 Sodium 142 Potassium 4.3 Chloride 103 Carbon Dioxide 30 H Anion Gap 13 BUN 8 L Creatinine 1.01 Estim Creat Clear Calc 54.7 Estimated GFR 55 POC Glucose 140 H 161 H Fasting Glucose 177 H Calcium 9.1 Imaging Radiology Impressions: ITS Impressions Barium Swallow X-Ray 09/25/23 09:20 IMPRESSION: 1. Trace laryngeal penetration with thick barium. No subglottic aspiration. 2. Dilated esophagus. Mild short segment benign stricture at the GE junction versus mild achalasia. 3. Moderate-sized type I hiatal hernia. 4. Severe gastroesophageal reflux. 5. Limited evaluation of the gastric mucosal and duodenal duodenal sweep due to poor tolerance of the effervescent granules, delayed gastric emptying, significant gastroesophageal reflux. Grossly no abnormality seen. This procedure was performed by Smith Alaniz PA-C, and supervised by Dr. Morgan Medications Medications Current Medications Acetaminophen (Acetaminophen 325 Mg Tablet) 650 mg PO Q6H PRN PRN Reason: Headache/Pain Mild Scale (1-3) Last Admin: 09/28/23 15:56 Dose: 650 mg Al Hydroxide/Mg Hydroxide (Magnesium Hydrox/Alum Hydrox 30 Ml Oral.Susp) 30 ml PO Q6H PRN PRN Reason: Heartburn/Nausea Last Admin: 09/18/23 09:59 Dose: 30 ml Amlodipine Besylate (Amlodipine Besylate 5 Mg Tablet) 5 mg PO DAILY [facility]; Protocol Last Admin: 09/30/23 11:11 Dose: 5 mg Atorvastatin Calcium (Atorvastatin Calcium 20 Mg Tablet) 20 mg PO BEDTIME [facility] Last Admin: 09/29/23 20:49 Dose: 20 mg Clonazepam (Clonazepam 0.5 Mg Tablet) 0.5 mg PO BID [facility] Last Admin: 09/30/23 11:11 Dose: Not Given Ferrous Sulfate (Ferrous Sulfate 324 Mg Tablet.) 324 mg PO DAILY [facility] Last Admin: 09/30/23 14:08 Dose: 324 mg Hydroxyzine HCl (Hydroxyzine Hcl 25 Mg Tablet) 25 mg PO Q6H PRN PRN Reason: Anxiety Last Admin: 09/23/23 22:06 Dose: 25 mg Insulin Glargine (Insulin Glargine,Hum.Rec.Anlog 100 Unit/Ml 10 Ml Vial) 20 unit SUBCUT BEDTIME [facility] Last Admin: 09/28/23 21:43 Dose: 20 unit Insulin Human Lispro (Insulin Lispro 100 Unit/Ml 3 Ml Vial) 0 unit SUBCUT QIDACHS [facility]; Protocol Last Admin: 09/30/23 12:19 Dose: 2 unit Lidocaine (Lidocaine 4 % Patch Adh..Patch) 1 patch TRANSDERMA DAILY [facility]; Protocol Last Admin: 09/30/23 11:12 Dose: Not Given Lisinopril (Lisinopril 5 Mg Tablet) 5 mg PO DAILY [facility]; Protocol Last Admin: 09/30/23 11:11 Dose: 5 mg Magnesium Hydroxide (Milk Of Magnesia 30 Ml Oral.Susp) 30 ml PO DAILY PRN PRN Reason: Constipation Magnesium Oxide (Magnesium Oxide 400 Mg Tablet) 400 mg PO BID [facility] Last Admin: 09/30/23 11:11 Dose: 400 mg Meclizine HCl (Meclizine Hcl 12.5 Mg Tablet) 12.5 mg PO Q8H PRN PRN Reason: Vertigo Metformin HCl (Metformin Hcl Er 500 Mg Tab.Er.24h) 1,000 mg PO BID [facility] Last Admin: 09/29/23 11:12 Dose: Not Given Omeprazole (Omeprazole 20 Mg Capsule.Dr) 20 mg PO BID@0630,1630 [facility] Last Admin: 09/30/23 11:19 Dose: 20 mg Risperidone (Risperidone 2 Mg Tablet) 2 mg PO BEDTIME [facility] Last Admin: 09/29/23 20:49 Dose: 2 mg Risperidone (Risperidone 1 Mg Tablet) 1 mg PO DAILY [facility] Last Admin: 09/30/23 11:11 Dose: Not Given Sodium Biphosphate/Sodium Phosphate (Sodium Phosphate,Davidson-Dibasic 133 Ml Enema) 133 ml [place] ONCE PRN PRN Reason: Poor Colonoscopy Prep Results Tizanidine HCl (Tizanidine Hcl 4 Mg Tablet) 4 mg PO TID PRN PRN Reason: muscle spasm Last Admin: 09/23/23 11:06 Dose: 4 mg Trazodone HCl (Trazodone Hcl 50 Mg Tablet) 50 mg PO BEDTIME PRN PRN Reason: Insomnia Last Admin: 09/26/23 01:24 Dose: 50 mg Venlafaxine HCl (Venlafaxine Hcl Er 75 Mg Cap.Er.24h) 75 mg PO DAILY [facility] Last Admin: 09/30/23 11:11 Dose: 75 mg Allergies Allergies Allergy/AdvReac Type Severity Reaction Status Date / Time No Known Allergies Allergy Verified 09/30/23 08:49 Assessment & Plan Assessment & Plan (1) Schizophrenia: Status: Acute Code(s): F20.9 - Schizophrenia, unspecified Plan 63 year old female with history of htn, uncontrolled type 2 diabetes, gerd/gastritis, depression, unspecified psychosis, hld, oa, ckd stage 3, tobacco dependence admitted to geriatric psychiatry [place] [facility] [place] consult placed to hospitalist service for medical H&P. - increase risperidone to 1mg po daily and 2mg po qhs. monitor Mg. 09/19 continue tx.PLEASE DO NOT INCREASE EFFEXOR IT WILL WORSEN HER PSYCHOSIS AND DELUSIONS. 09/20: continue current mgmt. 09/21: stable presentation. continue current mgmt. 09/22 continue tx. family meeting to be scheduled. will discuss with hospital ongoing nausea, decrease oral intake. 09/23 continue current medications. GI consult. 09/24 continue tx 09/25 Dr. Alfonso to do endoscopy tomorrow. continue all other meds. 09/27/2309/28: NO med changes. Colonoscopy scheduled tomorrow (GI consult 09/26 and they will enter relevant orders etc..). Nursing and pt aware. 09/29 continue tx. Reason for continued inpatient stay Substantial Risk for: inability to function Time Spent With Patient Time: Total time managing care of this patient today ____ minutes.
[2023-09-30 16:27] LABS: Glucose, Whole Blood 236 mg/dL (60-115)
[2023-09-30 19:58] LABS: Glucose, Whole Blood 294 mg/dL (60-115)
[2023-09-30 20:00] VITALS: BP 136/63; PULSE 99; RESP 18; TEMP 36.9; O2SAT 97
[2023-09-30] MEDS: Insulin Glargine,Hum.rec.anlog 100 UNIT/ML 10 ML VIAL 20 UNIT SUBCUT (20:58)
[2023-09-30] MEDS: risperiDONE 2 MG TABLET PO (21:00)
[2023-09-30] MEDS: Atorvastatin Calcium 20 MG TABLET PO (21:00)
[2023-09-30] MEDS: clonazePAM 0.5 MG TABLET PO (21:00)
[2023-09-30] MEDS: metFORMIN HCl ER 500 MG TAB.ER.24H 1000 MG PO (21:01)
[2023-10-01] MEDS: Omeprazole 20 MG CAPSULE.DR PO ×2 (06:35→16:38)
[2023-10-01 06:49] LABS: Glucose, Whole Blood 188 mg/dL (60-115)
[2023-10-01 07:50] LABS: Creatinine Clr Calc Pharmacy 49.3; Estimated Glomerular Filt Rate 48
[2023-10-01 08:11] VITALS: BP 113/64; PULSE 97; RESP 16; TEMP 36.6; O2SAT 96
[2023-10-01] MEDS: clonazePAM 0.5 MG TABLET PO ×2 (08:14→20:41)
[2023-10-01] MEDS: amLODIPine Besylate 5 MG TABLET PO (08:15)
[2023-10-01] MEDS: lisinopriL 5 MG TABLET PO (08:15)
[2023-10-01] MEDS: risperiDONE 1 MG TABLET PO (08:15)
[2023-10-01] MEDS: Magnesium Oxide 400 MG TABLET PO ×2 (08:15→20:41)
[2023-10-01] MEDS: Ferrous Sulfate 324 MG TABLET.DR PO (08:15)
[2023-10-01] MEDS: metFORMIN HCl ER 500 MG TAB.ER.24H 1000 MG PO ×2 (08:15→20:42)
[2023-10-01] MEDS: Venlafaxine HCl ER 75 MG CAP.ER.24H PO (08:15)
[2023-10-01] MEDS: Insulin Lispro 100 UNIT/ML 3 ML VIAL SUBCUT ×4 (08:19→20:44)
[2023-10-01 11:13] LABS: Glucose, Whole Blood 181 mg/dL (60-115)
--- NOTE | 2023-10-01 15:06 | HO.PSYCHPN ---
Subjective Subjective Date of Service: 10/01/23 Reason For Visit: Unspecified psychosis Subjective Notes: Conditional Voluntary Interim History: Pt slept through the night. She is concern about her medications turning her blood brown. She is less paranoid about SNF and staff hurting patients, but continues to present as hyperverbal, difficult to interrupt at times. She did agree to continue risperidone and lower dose of effexor as it will worse psychosis and simona. She is more organized in her thinking. She agreed to be referred to [facility]. Diagnostics Vital Signs (24Hr): Vital Signs - 24 hr 09/30/23 20:00 10/01/23 08:11 Temperature 98.5 F 97.9 F Pulse Rate 99 97 Respiratory Rate 18 16 Blood Pressure 136/63 113/64 Pulse Oximetry 97 96 Oxygen Delivery Method Room Air Room Air BMI result Body Mass Index 35.3 Labs 09/30/23 11:11 10/01/23 07:29 Labs: Laboratory Results - last 48 hr 09/29/23 09/29/23 09/30/23 16:13 20:19 06:03 WBC RBC Hgb Hct MCV MCH MCHC RDW Plt Count MPV Immature Gran % (Auto) Neut % (Auto) Lymph % (Auto) Wilson % (Auto) Eos % (Auto) Baso % (Auto) Lymph # (Auto) Wilson # (Auto) Eos # (Auto) Baso # (Auto) Abs Immat Gran (auto) Absolute Neuts (auto) Absolute Nucleated RBC Nucleated RBC % (auto) Sodium Potassium Chloride Carbon Dioxide Anion Gap BUN Creatinine Estim Creat Clear Calc Estimated GFR POC Glucose 142 H 235 H 140 H Fasting Glucose Calcium 09/30/23 09/30/23 09/30/23 11:11 11:27 16:19 WBC 8.9 RBC 3.62 L Hgb 9.2 L Hct 28.8 L MCV 79.6 L MCH 25.4 L MCHC 31.9 RDW 17.4 H Plt Count 434 H MPV 10.1 Immature Gran % (Auto) 0.3 Neut % (Auto) 62.4 Lymph % (Auto) 28.9 Wilson % (Auto) 7.1 Eos % (Auto) 1.0 Baso % (Auto) 0.3 Lymph # (Auto) 2.6 Wilson # (Auto) 0.6 Eos # (Auto) 0.1 Baso # (Auto) 0.0 Abs Immat Gran (auto) 0.03 Absolute Neuts (auto) 5.6 Absolute Nucleated RBC 0.000 Nucleated RBC % (auto) 0.0 Sodium 142 Potassium 4.3 Chloride 103 Carbon Dioxide 30 H Anion Gap 13 BUN 8 L Creatinine 1.01 Estim Creat Clear Calc 54.7 Estimated GFR 55 POC Glucose 161 H 236 H Fasting Glucose 177 H Calcium 9.1 09/30/23 10/01/23 10/01/23 19:47 06:34 07:29 WBC RBC Hgb Hct MCV MCH MCHC RDW Plt Count MPV Immature Gran % (Auto) Neut % (Auto) Lymph % (Auto) Wilson % (Auto) Eos % (Auto) Baso % (Auto) Lymph # (Auto) Wilson # (Auto) Eos # (Auto) Baso # (Auto) Abs Immat Gran (auto) Absolute Neuts (auto) Absolute Nucleated RBC Nucleated RBC % (auto) Sodium Potassium Chloride Carbon Dioxide Anion Gap BUN Creatinine 1.12 Estim Creat Clear Calc 49.3 Estimated GFR 48 POC Glucose 294 H 188 H Fasting Glucose Calcium 10/01/23 11:08 WBC RBC Hgb Hct MCV MCH MCHC RDW Plt Count MPV Immature Gran % (Auto) Neut % (Auto) Lymph % (Auto) Wilson % (Auto) Eos % (Auto) Baso % (Auto) Lymph # (Auto) Wilson # (Auto) Eos # (Auto) Baso # (Auto) Abs Immat Gran (auto) Absolute Neuts (auto) Absolute Nucleated RBC Nucleated RBC % (auto) Sodium Potassium Chloride Carbon Dioxide Anion Gap BUN Creatinine Estim Creat Clear Calc Estimated GFR POC Glucose 181 H Fasting Glucose Calcium Imaging Radiology Impressions: ITS Impressions Barium Swallow X-Ray 09/25/23 09:20 IMPRESSION: 1. Trace laryngeal penetration with thick barium. No subglottic aspiration. 2. Dilated esophagus. Mild short segment benign stricture at the GE junction versus mild achalasia. 3. Moderate-sized type I hiatal hernia. 4. Severe gastroesophageal reflux. 5. Limited evaluation of the gastric mucosal and duodenal duodenal sweep due to poor tolerance of the effervescent granules, delayed gastric emptying, significant gastroesophageal reflux. Grossly no abnormality seen. This procedure was performed by Smith Alaniz PA-C, and supervised by Dr. Morgan Medications Medications Current Medications Acetaminophen (Acetaminophen 325 Mg Tablet) 650 mg PO Q6H PRN PRN Reason: Headache/Pain Mild Scale (1-3) Last Admin: 09/28/23 15:56 Dose: 650 mg Al Hydroxide/Mg Hydroxide (Magnesium Hydrox/Alum Hydrox 30 Ml Oral.Susp) 30 ml PO Q6H PRN PRN Reason: Heartburn/Nausea Last Admin: 09/18/23 09:59 Dose: 30 ml Amlodipine Besylate (Amlodipine Besylate 5 Mg Tablet) 5 mg PO DAILY [facility]; Protocol Last Admin: 10/01/23 08:15 Dose: 5 mg Atorvastatin Calcium (Atorvastatin Calcium 20 Mg Tablet) 20 mg PO BEDTIME [facility] Last Admin: 09/30/23 21:00 Dose: 20 mg Clonazepam (Clonazepam 0.5 Mg Tablet) 0.5 mg PO BID [facility] Last Admin: 10/01/23 08:14 Dose: 0.5 mg Ferrous Sulfate (Ferrous Sulfate 324 Mg Tablet.Dr) 324 mg PO DAILY [facility] Last Admin: 10/01/23 08:15 Dose: 324 mg Hydroxyzine HCl (Hydroxyzine Hcl 25 Mg Tablet) 25 mg PO Q6H PRN PRN Reason: Anxiety Last Admin: 09/23/23 22:06 Dose: 25 mg Insulin Glargine (Insulin Glargine,Hum.Rec.Anlog 100 Unit/Ml 10 Ml Vial) 20 unit SUBCUT BEDTIME [facility] Last Admin: 09/30/23 20:58 Dose: 20 unit Insulin Human Lispro (Insulin Lispro 100 Unit/Ml 3 Ml Vial) 0 unit SUBCUT QIDACHS [facility]; Protocol Last Admin: 10/01/23 11:30 Dose: 2 unit Lidocaine (Lidocaine 4 % Patch Adh..Patch) 1 patch TRANSDERMA DAILY [facility]; Protocol Last Admin: 10/01/23 08:21 Dose: Not Given Lisinopril (Lisinopril 5 Mg Tablet) 5 mg PO DAILY [facility]; Protocol Last Admin: 10/01/23 08:15 Dose: 5 mg Magnesium Hydroxide (Milk Of Magnesia 30 Ml Oral.Susp) 30 ml PO DAILY PRN PRN Reason: Constipation Magnesium Oxide (Magnesium Oxide 400 Mg Tablet) 400 mg PO BID [facility] Last Admin: 10/01/23 08:15 Dose: 400 mg Meclizine HCl (Meclizine Hcl 12.5 Mg Tablet) 12.5 mg PO Q8H PRN PRN Reason: Vertigo Metformin HCl (Metformin Hcl Er 500 Mg Tab.Er.24h) 1,000 mg PO BID [facility] Last Admin: 10/01/23 08:15 Dose: 1,000 mg Omeprazole (Omeprazole 20 Mg Capsule.) 20 mg PO BID@0630,1630 [facility] Last Admin: 10/01/23 06:35 Dose: 20 mg Risperidone (Risperidone 2 Mg Tablet) 2 mg PO BEDTIME [facility] Last Admin: 09/30/23 21:00 Dose: 2 mg Risperidone (Risperidone 1 Mg Tablet) 1 mg PO DAILY [facility] Last Admin: 10/01/23 08:15 Dose: 1 mg Sodium Biphosphate/Sodium Phosphate (Sodium Phosphate,Wilson-Dibasic 133 Ml Enema) 133 ml [place] ONCE PRN PRN Reason: Poor Colonoscopy Prep Results Tizanidine HCl (Tizanidine Hcl 4 Mg Tablet) 4 mg PO TID PRN PRN Reason: muscle spasm Last Admin: 09/23/23 11:06 Dose: 4 mg Trazodone HCl (Trazodone Hcl 50 Mg Tablet) 50 mg PO BEDTIME PRN PRN Reason: Insomnia Last Admin: 09/26/23 01:24 Dose: 50 mg Venlafaxine HCl (Venlafaxine Hcl Er 75 Mg Cap.Er.24h) 75 mg PO DAILY [facility] Last Admin: 10/01/23 08:15 Dose: 75 mg Allergies Allergies Allergy/AdvReac Type Severity Reaction Status Date / Time No Known Allergies Allergy Verified 09/30/23 08:49 Assessment & Plan Assessment & Plan (1) Schizophrenia: Status: Acute Code(s): F20.9 - Schizophrenia, unspecified Plan 63 year old female with history of htn, uncontrolled type 2 diabetes, gerd/gastritis, depression, unspecified psychosis, hld, oa, ckd stage 3, tobacco dependence admitted to geriatric psychiatry [place] [facility] [place] consult placed to hospitalist service for medical H&P. - increase risperidone to 1mg po daily and 2mg po qhs. monitor Mg. 09/19 continue tx.PLEASE DO NOT INCREASE EFFEXOR IT WILL WORSEN HER PSYCHOSIS AND DELUSIONS. 2: continue current mgmt. 3: stable presentation. continue current mgmt. 09/22 continue tx. family meeting to be scheduled. will discuss with hospital ongoing nausea, decrease oral intake. 09/23 continue current medications. GI consult. 3/6 continue tx 09/25 Dr. Alfonso to do endoscopy tomorrow. continue all other meds. 09/27/2309/28: NO med changes. Colonoscopy scheduled tomorrow (GI consult 09/26 and they will enter relevant orders etc..). Nursing and pt aware. 09/29 continue tx. 09/30 continue tx. Reason for continued inpatient stay Substantial Risk for: inability to function Time Spent With Patient Time: Total time managing care of this patient today ____ minutes.
[2023-10-01 16:16] LABS: Glucose, Whole Blood 280 mg/dL (60-115)
[2023-10-01] MEDS: Tetrahydrozoline HCl 0.05% Oph 15 ML DRPBTL 1 DROP EYE-BOTH (18:50)
[2023-10-01 20:11] LABS: Glucose, Whole Blood 274 mg/dL (60-115)
[2023-10-01 20:11] LABS: Glucose, Whole Blood 221 mg/dL (60-115)
[2023-10-01 20:12] VITALS: BP 157/84; PULSE 89; RESP 18; TEMP 36.7; O2SAT 98
[2023-10-01] MEDS: Atorvastatin Calcium 20 MG TABLET PO (20:41)
[2023-10-01] MEDS: risperiDONE 2 MG TABLET PO (20:42)
[2023-10-01] MEDS: Insulin Glargine,Hum.rec.anlog 100 UNIT/ML 10 ML VIAL 20 UNIT SUBCUT (20:42)
[2023-10-02] MEDS: Omeprazole 20 MG CAPSULE.DR PO ×2 (05:12→16:45)
[2023-10-02 06:32] LABS: Glucose, Whole Blood 158 mg/dL (60-115)
[2023-10-02 07:58] VITALS: BP 143/68; PULSE 92; RESP 18; TEMP 36.3; O2SAT 95
[2023-10-02] MEDS: Ferrous Sulfate 324 MG TABLET.DR PO (08:48)
[2023-10-02] MEDS: amLODIPine Besylate 5 MG TABLET PO (08:48)
[2023-10-02] MEDS: clonazePAM 0.5 MG TABLET PO (08:48)
[2023-10-02] MEDS: metFORMIN HCl ER 500 MG TAB.ER.24H 1000 MG PO ×2 (08:48→21:39)
[2023-10-02] MEDS: lisinopriL 5 MG TABLET PO (08:48)
[2023-10-02] MEDS: hydrOXYzine HCL 25 MG TABLET PO (08:48)
[2023-10-02] MEDS: Venlafaxine HCl ER 75 MG CAP.ER.24H PO (08:49)
[2023-10-02] MEDS: Magnesium Oxide 400 MG TABLET PO ×2 (08:49→21:39)
[2023-10-02] MEDS: Insulin Lispro 100 UNIT/ML 3 ML VIAL SUBCUT ×4 (08:49→21:37)
[2023-10-02] MEDS: risperiDONE 2 MG TABLET PO ×2 (08:49→21:38)
[2023-10-02 11:41] LABS: Glucose, Whole Blood 210 mg/dL (60-115)
--- NOTE | 2023-10-02 13:53 | MHC.CLN ---
NUTRITION DIET=REGULAR. TAKES DM MEDS. USUAL MEAL PATTERN EACH DAY APPEARS TO BE 100% X 2 MEALS AND 0 AT ONE MEAL. CONTINUE TO MONITOR BLOOD GLUCOSE AND INTAKE.
[2023-10-02 16:18] LABS: Glucose, Whole Blood 166 mg/dL (60-115)
--- NOTE | 2023-10-02 17:32 | P.PNPSI_ITS ---
Subjective Subjective Date of Service: 10/02/23 Reason For Visit: Unspecified psychosis Interim History: Pt with dementia entered her room. She reports this really scared her and she wants to be discharged as soon as possible. She reports she spoke with her sister who is now in agreement to let her stay with her. Some continued paranoia about people hurting others, effects of medications along with some grandiose ideas including need to safe others, being a bird. She has been taking medications as prescribed. No behavioral concerns. Review of Systems Review of Systems Unremarkable Yes all other systems are reviewed and are negative Mental Status Exam Mental Status Exam Narrative: Appearance: wearing hospital gown, fair hygiene, in NAD Behavior: guarded Psychomotor: no agitation or retardation noted Speech: mostly clear, normal rate/rhythm/volume, spontaneous TP: less disorganized TC: delusional material paranoia Mood: flat Affect: blunted SI: none expressed HI: none expressed VH/AH: none expressed Insight/judgment: poor x 2. Memory/cog: alert, oriented x 3. Diagnostics Vital Signs (24Hr): Vital Signs - 24 hr 10/01/23 20:12 10/02/23 07:58 Temperature 98.1 F 97.3 F Pulse Rate 89 92 Respiratory Rate 18 18 Blood Pressure 157/84 H 143/68 H Pulse Oximetry 98 95 Oxygen Delivery Method Room Air Room Air BMI result Body Mass Index 35.3 Labs 09/30/23 11:11 10/01/23 07:29 Labs: Laboratory Results - last 48 hr 09/30/23 10/01/23 10/01/23 19:47 06:34 07:29 Creatinine 1.12 Estim Creat Clear Calc 49.3 Estimated GFR 48 POC Glucose 294 H 188 H 10/01/23 10/01/23 10/01/23 11:08 16:12 19:44 Creatinine Estim Creat Clear Calc Estimated GFR POC Glucose 181 H 280 H 221 H 10/01/23 10/02/23 10/02/23 20:03 06:21 11:36 Creatinine Estim Creat Clear Calc Estimated GFR POC Glucose 274 H 158 H 210 H 10/02/23 16:14 Creatinine Estim Creat Clear Calc Estimated GFR POC Glucose 166 H Imaging Radiology Impressions: ITS Impressions Barium Swallow X-Ray 09/25/23 09:20 IMPRESSION: 1. Trace laryngeal penetration with thick barium. No subglottic aspiration. 2. Dilated esophagus. Mild short segment benign stricture at the GE junction versus mild achalasia. 3. Moderate-sized type I hiatal hernia. 4. Severe gastroesophageal reflux. 5. Limited evaluation of the gastric mucosal and duodenal duodenal sweep due to poor tolerance of the effervescent granules, delayed gastric emptying, significant gastroesophageal reflux. Grossly no abnormality seen. This procedure was performed by Smith Alaniz PA-C, and supervised by Dr. Morgan Medications Medications Current Medications Acetaminophen (Acetaminophen 325 Mg Tablet) 650 mg PO Q6H PRN PRN Reason: Headache/Pain Mild Scale (1-3) Last Admin: 09/28/23 15:56 Dose: 650 mg Al Hydroxide/Mg Hydroxide (Magnesium Hydrox/Alum Hydrox 30 Ml Oral.Susp) 30 ml PO Q6H PRN PRN Reason: Heartburn/Nausea Last Admin: 09/18/23 09:59 Dose: 30 ml Amlodipine Besylate (Amlodipine Besylate 5 Mg Tablet) 5 mg PO DAILY [facility]; Protocol Last Admin: 10/02/23 08:48 Dose: 5 mg Atorvastatin Calcium (Atorvastatin Calcium 20 Mg Tablet) 20 mg PO BEDTIME [facility] Last Admin: 10/01/23 20:41 Dose: 20 mg Clonazepam (Clonazepam 0.5 Mg Tablet) 0.5 mg PO BID PRN PRN Reason: moderate, anxiety Ferrous Sulfate (Ferrous Sulfate 324 Mg Tablet.) 324 mg PO DAILY [facility] Last Admin: 10/02/23 08:48 Dose: 324 mg Hydroxyzine HCl (Hydroxyzine Hcl 25 Mg Tablet) 25 mg PO Q6H PRN PRN Reason: Anxiety, mild Insulin Glargine (Insulin Glargine,Hum.Rec.Anlog 100 Unit/Ml 10 Ml Vial) 20 unit SUBCUT BEDTIME [facility] Last Admin: 10/01/23 20:42 Dose: 20 unit Insulin Human Lispro (Insulin Lispro 100 Unit/Ml 3 Ml Vial) 0 unit SUBCUT QIDACHS [facility]; Protocol Last Admin: 10/02/23 16:45 Dose: 2 unit Lidocaine (Lidocaine 4 % Patch Adh..Patch) 1 patch TRANSDERMA DAILY [facility]; Protocol Last Admin: 10/02/23 08:54 Dose: Not Given Lisinopril (Lisinopril 5 Mg Tablet) 5 mg PO DAILY [facility]; Protocol Last Admin: 10/02/23 08:48 Dose: 5 mg Magnesium Hydroxide (Milk Of Magnesia 30 Ml Oral.Susp) 30 ml PO DAILY PRN PRN Reason: Constipation Magnesium Oxide (Magnesium Oxide 400 Mg Tablet) 400 mg PO BID [facility] Last Admin: 10/02/23 08:49 Dose: 400 mg Meclizine HCl (Meclizine Hcl 12.5 Mg Tablet) 12.5 mg PO Q8H PRN PRN Reason: Vertigo Metformin HCl (Metformin Hcl Er 500 Mg Tab.Er.24h) 1,000 mg PO BID [facility] Last Admin: 10/02/23 08:48 Dose: 1,000 mg Omeprazole (Omeprazole 20 Mg Capsule.Dr) 20 mg PO BID@0630,1630 [facility] Last Admin: 10/02/23 16:45 Dose: 20 mg Risperidone (Risperidone 2 Mg Tablet) 2 mg PO BID [facility] Last Admin: 10/02/23 08:49 Dose: 2 mg Sodium Biphosphate/Sodium Phosphate (Sodium Phosphate,Holt-Dibasic 133 Ml Enema) 133 ml VA ONCE PRN PRN Reason: Poor Colonoscopy Prep Results Tetrahydrozoline HCl (Tetrahydrozoline Hcl 0.05% Oph 15 Ml Drpbtl) 1 drop EYE- BOTH QID PRN PRN Reason: itchy/dry eyes Last Admin: 10/01/23 18:50 Dose: 1 drop Tizanidine HCl (Tizanidine Hcl 4 Mg Tablet) 4 mg PO TID PRN PRN Reason: muscle spasm Last Admin: 09/23/23 11:06 Dose: 4 mg Trazodone HCl (Trazodone Hcl 50 Mg Tablet) 50 mg PO BEDTIME PRN PRN Reason: Insomnia Last Admin: 09/26/23 01:24 Dose: 50 mg Venlafaxine HCl (Venlafaxine Hcl Er 75 Mg Cap.Er.24h) 75 mg PO DAILY [facility] Last Admin: 10/02/23 08:49 Dose: 75 mg Allergies Allergies Allergy/AdvReac Type Severity Reaction Status Date / Time No Known Allergies Allergy Verified 09/30/23 08:49 Assessment & Plan Assessment & Plan (1) Schizophrenia: Status: Acute Code(s): F20.9 - Schizophrenia, unspecified Plan 63 year old female with history of htn, uncontrolled type 2 diabetes, gerd/gastritis, depression, unspecified psychosis, hld, oa, ckd stage 3, tobacco dependence admitted to geriatric psychiatry from [facility] [place] with consult placed to hospitalist service for medical H&P. - increase risperidone to 1mg po daily and 2mg po qhs. monitor Mg. 09/19 continue tx.PLEASE DO NOT INCREASE EFFEXOR IT WILL WORSEN HER PSYCHOSIS AND DELUSIONS. 09/20: continue current mgmt. 09/21: stable presentation. continue current mgmt. 09/22 continue tx. family meeting to be scheduled. will discuss with hospital ongoing nausea, decrease oral intake. 09/23 continue current medications. GI consult. 09/24 continue tx 09/25 Dr. Alfonso to do endoscopy tomorrow. continue all other meds. 09/27/2309/28: NO med changes. Colonoscopy scheduled tomorrow (GI consult 09/26 and they will enter relevant orders etc..). Nursing and pt aware. 09/29 continue tx. 09/30 continue tx 10/01 continue tx. Reason for continued inpatient stay Substantial Risk for: inability to function Time Spent With Patient Time: Total time managing care of this patient today ____ minutes.
[2023-10-02 18:00] VITALS: BP 104/56; PULSE 87; RESP 18; TEMP 35.9; O2SAT 94
[2023-10-02 19:52] LABS: Glucose, Whole Blood 167 mg/dL (60-115)
[2023-10-02] MEDS: Insulin Glargine,Hum.rec.anlog 100 UNIT/ML 10 ML VIAL 20 UNIT SUBCUT (21:37)
[2023-10-02] MEDS: Atorvastatin Calcium 20 MG TABLET PO (21:38)
[2023-10-02] MEDS: Tetrahydrozoline HCl 0.05% Oph 15 ML DRPBTL 1 DROP EYE-BOTH (21:39)
[2023-10-03] MEDS: clonazePAM 0.5 MG TABLET PO (00:14)
[2023-10-03 02:21] VITALS: BP 110/59; PULSE 78; RESP 18
[2023-10-03 06:00] VITALS: BP 138/62; PULSE 85; RESP 16; TEMP 36.7; O2SAT 94
[2023-10-03] MEDS: Omeprazole 20 MG CAPSULE.DR PO ×2 (06:15→17:00)
[2023-10-03 06:48] LABS: Glucose, Whole Blood 110 mg/dL (60-115)
[2023-10-03 07:00] VITALS: BMI 35.8
[2023-10-03] MEDS: risperiDONE 2 MG TABLET PO ×2 (08:36→21:19)
[2023-10-03] MEDS: amLODIPine Besylate 5 MG TABLET PO (08:36)
[2023-10-03] MEDS: Ferrous Sulfate 324 MG TABLET.DR PO (08:36)
[2023-10-03] MEDS: Magnesium Oxide 400 MG TABLET PO ×2 (08:36→21:18)
[2023-10-03] MEDS: metFORMIN HCl ER 500 MG TAB.ER.24H 1000 MG PO ×2 (08:36→21:18)
[2023-10-03] MEDS: Venlafaxine HCl ER 75 MG CAP.ER.24H PO (08:36)
[2023-10-03] MEDS: lisinopriL 5 MG TABLET PO (08:36)
[2023-10-03 11:43] LABS: Glucose, Whole Blood 174 mg/dL (60-115)
[2023-10-03] MEDS: Insulin Lispro 100 UNIT/ML 3 ML VIAL SUBCUT ×3 (11:46→21:16)
[2023-10-03 16:18] LABS: Glucose, Whole Blood 181 mg/dL (60-115)
[2023-10-03 18:00] VITALS: BP 118/60; PULSE 91; RESP 18; TEMP 36.6; O2SAT 97
[2023-10-03] MEDS: Insulin Glargine,Hum.rec.anlog 100 UNIT/ML 10 ML VIAL 20 UNIT SUBCUT (21:15)
[2023-10-03] MEDS: Atorvastatin Calcium 20 MG TABLET PO (21:18)
--- NOTE | 2023-10-03 21:45 | P.PNPSI_ITS ---
Subjective Subjective Date of Service: 10/03/23 Reason For Visit: Unspecified psychosis Subjective Notes: Conditional Voluntary Interim History: Pt upset about the way nurse talked to her roommate. She reports she does not want to be here and would like to discharge to her sister's house. Sister did confirm pt can go there. She does present with much more organized thought process, calmer. Less delusions. No behavioral concerns. Review of Systems Review of Systems Unremarkable Yes all other systems are reviewed and are negative Mental Status Exam Mental Status Exam Narrative: Appearance: wearing hospital gown, fair hygiene, in NAD Behavior: guarded Psychomotor: no agitation or retardation noted Speech: mostly clear, normal rate/rhythm/volume, spontaneous TP: less disorganized TC: delusional material paranoia Mood: flat Affect: blunted SI: none expressed HI: none expressed VH/AH: none expressed Insight/judgment: poor x 2. Memory/cog: alert, oriented x 3. Diagnostics Vital Signs (24Hr): Vital Signs - 24 hr 10/03/23 02:21 10/03/23 06:00 Temperature 98.0 F Pulse Rate 78 85 Respiratory Rate 18 16 Blood Pressure 110/59 L 138/62 Pulse Oximetry 94 Oxygen Delivery Method Room Air BMI result Body Mass Index 35.8 Labs 09/30/23 11:11 10/01/23 07:29 Labs: Laboratory Results - last 48 hr 10/02/23 10/02/23 10/02/23 06:21 11:36 16:14 POC Glucose 158 H 210 H 166 H 10/02/23 10/03/23 10/03/23 19:43 06:14 11:34 POC Glucose 167 H 110 174 H 10/03/23 16:05 POC Glucose 181 H Imaging Radiology Impressions: ITS Impressions Barium Swallow X-Ray 09/25/23 09:20 IMPRESSION: 1. Trace laryngeal penetration with thick barium. No subglottic aspiration. 2. Dilated esophagus. Mild short segment benign stricture at the GE junction versus mild achalasia. 3. Moderate-sized type I hiatal hernia. 4. Severe gastroesophageal reflux. 5. Limited evaluation of the gastric mucosal and duodenal duodenal sweep due to poor tolerance of the effervescent granules, delayed gastric emptying, significant gastroesophageal reflux. Grossly no abnormality seen. This procedure was performed by Smith Alaniz PA-C, and supervised by Dr. Morgan Medications Medications Current Medications Acetaminophen (Acetaminophen 325 Mg Tablet) 650 mg PO Q6H PRN PRN Reason: Headache/Pain Mild Scale (1-3) Last Admin: 09/28/23 15:56 Dose: 650 mg Al Hydroxide/Mg Hydroxide (Magnesium Hydrox/Alum Hydrox 30 Ml Oral.Susp) 30 ml PO Q6H PRN PRN Reason: Heartburn/Nausea Last Admin: 09/18/23 09:59 Dose: 30 ml Amlodipine Besylate (Amlodipine Besylate 5 Mg Tablet) 5 mg PO DAILY [facility]; Protocol Last Admin: 10/03/23 08:36 Dose: 5 mg Atorvastatin Calcium (Atorvastatin Calcium 20 Mg Tablet) 20 mg PO BEDTIME [facility] Last Admin: 10/03/23 21:18 Dose: 20 mg Clonazepam (Clonazepam 0.5 Mg Tablet) 0.5 mg PO BID PRN PRN Reason: moderate, anxiety Last Admin: 10/03/23 00:14 Dose: 0.5 mg Ferrous Sulfate (Ferrous Sulfate 324 Mg Tablet.Dr) 324 mg PO DAILY [facility] Last Admin: 10/03/23 08:36 Dose: 324 mg Hydroxyzine HCl (Hydroxyzine Hcl 25 Mg Tablet) 25 mg PO Q6H PRN PRN Reason: Anxiety, mild Insulin Glargine (Insulin Glargine,Hum.Rec.Anlog 100 Unit/Ml 10 Ml Vial) 20 unit SUBCUT BEDTIME [facility] Last Admin: 10/03/23 21:15 Dose: 20 unit Insulin Human Lispro (Insulin Lispro 100 Unit/Ml 3 Ml Vial) 0 unit SUBCUT QIDACHS [facility]; Protocol Last Admin: 10/03/23 21:16 Dose: 4 unit Lidocaine (Lidocaine 4 % Patch Adh..Patch) 1 patch TRANSDERMA DAILY [facility]; Protocol Last Admin: 10/03/23 08:36 Dose: Not Given Lisinopril (Lisinopril 5 Mg Tablet) 5 mg PO DAILY [facility]; Protocol Last Admin: 10/03/23 08:36 Dose: 5 mg Magnesium Hydroxide (Milk Of Magnesia 30 Ml Oral.Susp) 30 ml PO DAILY PRN PRN Reason: Constipation Magnesium Oxide (Magnesium Oxide 400 Mg Tablet) 400 mg PO BID [facility] Last Admin: 10/03/23 21:18 Dose: 400 mg Meclizine HCl (Meclizine Hcl 12.5 Mg Tablet) 12.5 mg PO Q8H PRN PRN Reason: Vertigo Metformin HCl (Metformin Hcl Er 500 Mg Tab.Er.24h) 1,000 mg PO BID [facility] Last Admin: 10/03/23 21:18 Dose: 1,000 mg Omeprazole (Omeprazole 20 Mg Capsule.Dr) 20 mg PO BID@0630,1630 [facility] Last Admin: 10/03/23 17:00 Dose: 20 mg Risperidone (Risperidone 2 Mg Tablet) 2 mg PO BID [facility] Last Admin: 10/03/23 21:19 Dose: 2 mg Tetrahydrozoline HCl (Tetrahydrozoline Hcl 0.05% Oph 15 Ml Drpbtl) 1 drop EYE- BOTH QID PRN PRN Reason: itchy/dry eyes Last Admin: 10/02/23 21:39 Dose: 1 drop Tizanidine HCl (Tizanidine Hcl 4 Mg Tablet) 4 mg PO TID PRN PRN Reason: muscle spasm Last Admin: 09/23/23 11:06 Dose: 4 mg Trazodone HCl (Trazodone Hcl 50 Mg Tablet) 50 mg PO BEDTIME PRN PRN Reason: Insomnia Last Admin: 09/26/23 01:24 Dose: 50 mg Venlafaxine HCl (Venlafaxine Hcl Er 75 Mg Cap.Er.24h) 75 mg PO DAILY [facility] Last Admin: 10/03/23 08:36 Dose: 75 mg Allergies Allergies Allergy/AdvReac Type Severity Reaction Status Date / Time No Known Allergies Allergy Verified 09/30/23 08:49 Assessment & Plan Assessment & Plan (1) Schizophrenia: Status: Acute Code(s): F20.9 - Schizophrenia, unspecified Plan 63 year old female with history of htn, uncontrolled type 2 diabetes, gerd/gastritis, depression, unspecified psychosis, hld, oa, ckd stage 3, tobacco dependence admitted to geriatric psychiatry from [facility] [place] with consult placed to hospitalist service for medical H&P. - increase risperidone to 1mg po daily and 2mg po qhs. monitor Mg. 09/19 continue tx.PLEASE DO NOT INCREASE EFFEXOR IT WILL WORSEN HER PSYCHOSIS AND DELUSIONS. 2: continue current mgmt. 33: stable presentation. continue current mgmt. / continue tx. family meeting to be scheduled. will discuss with hospital ongoing nausea, decrease oral intake. 09/23 continue current medications. GI consult. 09/24 continue tx 09/25 Dr. Alfonso to do endoscopy tomorrow. continue all other meds. 09/27/2309/28: NO med changes. Colonoscopy scheduled tomorrow (GI consult 09/26 and they will enter relevant orders etc..). Nursing and pt aware. 09/29 continue tx. 09/30 continue tx 10/02 continue tx. Reason for continued inpatient stay Substantial Risk for: inability to function Time Spent With Patient Time: Total time managing care of this patient today ____ minutes.
[2023-10-04 00:01] LABS: Glucose, Whole Blood 228 mg/dL (60-115)
[2023-10-04] MEDS: hydrOXYzine HCL 25 MG TABLET PO (01:03)
[2023-10-04] MEDS: Omeprazole 20 MG CAPSULE.DR PO (05:59)
[2023-10-04 06:38] LABS: Glucose, Whole Blood 105 mg/dL (60-115)
[2023-10-04] MEDS: Ferrous Sulfate 324 MG TABLET.DR PO (08:51)
[2023-10-04] MEDS: lisinopriL 5 MG TABLET PO (08:51)
[2023-10-04] MEDS: amLODIPine Besylate 5 MG TABLET PO (08:51)
[2023-10-04] MEDS: Magnesium Oxide 400 MG TABLET PO (08:51)
[2023-10-04] MEDS: metFORMIN HCl ER 500 MG TAB.ER.24H 1000 MG PO (08:51)
[2023-10-04] MEDS: risperiDONE 2 MG TABLET PO (08:51)
[2023-10-04] MEDS: Venlafaxine HCl ER 75 MG CAP.ER.24H PO (08:51)
--- NOTE | 2023-10-04 09:08 | MHC.CLN ---
F/U DIET=REGULAR. TAKES DM MEDS AND POC GLUCOSE CHECKS IN PLACE. RD AVAILABLE NEEDED.
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
== END 2023-10-04 11:20 | DRG 885 ==
PROVIDERS: Clinical Nurse Specialist Psychiatric/Mental Health, Adult; Internal Medicine; Social Worker; Admitting Provider Psychiatry & Neurology Psychiatry; Visit Provider Psychiatry & Neurology Psychiatry
DX: F25.0 Schizoaffective disorder, bipolar type (principal); K21.9 Gastro-esophageal reflux disease without esophagitis; E78.5 Hyperlipidemia, unspecified; K44.9 Diaphragmatic hernia without obstruction or gangrene; I12.9 Hypertensive chronic kidney disease with stage 1 through stage 4 chronic kidney disease, or unspecified chronic kidney disease; N18.30 Chronic kidney disease, stage 3 unspecified; E11.22 Type 2 diabetes mellitus with diabetic chronic kidney disease; D63.1 Anemia in chronic kidney disease; E83.42 Hypomagnesemia; M62.838 Other muscle spasm; Z79.4 Long term (current) use of insulin; Z79.84 Long term (current) use of oral hypoglycemic drugs; Z79.899 Other long term (current) drug therapy
CPT/HCPCS: 36415; 74220; 80048; 80053; 80061; 82565; 82607; 82728; 82746; 82947; 83036; 83540; 83735; 84439; 84443; 85025; 93005

== ENCOUNTER → 2023-09-17 03:52 | Outpatient (BNV) | payer MEDICARE, MEDICAID, SELFPAY | PROVIDERS: Admitting Provider Psychiatry & Neurology Psychiatry; Visit Provider Social Worker | DX: F20.0 Paranoid schizophrenia (principal) | CPT/HCPCS: 90792; 99231; 99232; 99238 ==

== ENCOUNTER → 2023-09-17 03:52 | Outpatient (BNV) | payer MEDICARE, MEDICAID, SELFPAY | PROVIDERS: Admitting Provider Psychiatry & Neurology Psychiatry; Visit Provider Psychiatry & Neurology Psychiatry | DX: F20.0 Paranoid schizophrenia (principal) | CPT/HCPCS: 99232 ==

== ENCOUNTER → 2023-09-17 03:52 | Outpatient (BNV) | payer MEDICARE, MEDICAID, SELFPAY | PROVIDERS: Admitting Provider Psychiatry & Neurology Psychiatry; Visit Provider Physician Assistant | DX: M62.838 Other muscle spasm (principal); R42 Dizziness and giddiness; E83.42 Hypomagnesemia; E11.65 Type 2 diabetes mellitus with hyperglycemia | CPT/HCPCS: 99222; 99499 ==

== ENCOUNTER 2023-09-27 07:06 | Day surgery (SDC) | payer MEDICARE, MEDICAID, SELFPAY ==
[2023-09-27 11:27] VITALS: BMI 35.3
[2023-09-27 11:29] VITALS: BP 130/88; PULSE 93; RESP 18; TEMP 36.7; O2SAT 97
--- NOTE | 2023-09-27 11:29 | HO.ANESPROP2 ---
[facility] Active Problems Active Problems: All Active Problems (Updated 09/26/23 @ 17:13 by Gabriella Bee) Schizophrenia (Acute) Psychosis (Acute) Dizziness (Acute) Routine medical exam (Acute) Neck muscle spasm (Acute) Past Medical History Medical History Osteoarthritis GERD (gastroesophageal reflux disease) HLD (hyperlipidemia) HTN (hypertension) Type 2 diabetes mellitus Functional capacity: bed bound Patient : No Family History Family history of problems with anesthesia: No Surgical History History of Problems with Anesthesia: No Social History Social History Household Members: None Housing: Other Housing Other:: [facility] Do you presently have visiting nurse or other home services: No Patient Tobacco Use Status: Never used Tobacco Second Hand Smoke Exposure: No Use of substances other than those prescribed or required for medical reasons: No Substance Use Type: Marijuana Are you DNR?: No Advance Directives: No Advance Directives Information Provided: Yes Advance Directives on File: No service: No Sexual orientation: Straight/Heterosexual Meds Allergies Allergy/AdvReac Type Severity Reaction Status Date / Time No Known Allergies Allergy Verified 09/16/23 21:45 Exam Height,Weight and Vital Signs: Height 5 ft 2 in Weight 87.5 kg Airway TM Dist: >3cm Neck ROM: Full Heart: RRR Lungs: CTA Assessment and Plan Assessment Anesthesia Assessment: Anesthesia Plan Discussed and Smoking Cess. Discussed Final Anesthetic Review Family History of Problems with Anesthesia: No History of Problems with Anesthesia: No NPO: Yes ASA Class: III Final Preanesthetic Review: Meds/Allgs Chart Reviewed, Consent Obtained/Reviewed and Anes Risks/Benef Reviewed Patient Risk: Intermediate Procedure Risk: Low Anesthetic Plan Anesthetic Plan: MAC: Disposition: Standard PACU
[2023-09-27 12:11] VITALS: BP 151/68; PULSE 114; RESP 18; TEMP 36.1; O2SAT 95
--- NOTE | 2023-09-27 12:17 | P.BOP_ITS ---
Brief Operative Note Date of Service: 09/27/23 Pre-op diagnosis: GERD, Abnormal Barium swallow Post-op diagnosis: other (Same, Hiatal hernia, Esophageal ring, R/O Celiac disease) Procedure: EGD with Biopsies and Balloon Dilation Surgeon: Tanvir Alfonso MD Anesthesia: MAC Was an Digital Music Instructor used for this Procedure?: No Estimated blood loss (mL): 2.0 Pathology: other (A. Descending duodenum) Condition: stable Disposition: PACU
--- NOTE | 2023-09-27 12:19 | P.EN_ITS ---
Event Note Date of Service: 09/27/23 Event Note: EGD with Balloon dilation and biopsies. Full note dictated Findings: 1. Moderate-sized hiatal hernia with some mild gastritis with some erythema and edema, but no erosions 2. Nonobstructing distal esophageal ring---dilated with an 18mm to 19mm balloon, although without any real appreciable effect 3. Duodenum WNL-biopsies taken, R/O Celiac disease Rec: Check path. PPI daily. Advance diet. Will plan for Colonoscopy on 09/29 for further evaluation of her Iron deficiency anemia. I shall place the orders for the prep and diet change for 09/29/23. I did review the need for this with the patient and her sister, Zo, in detail. They are in agreement with the alberto [email or web address]. Thanks Time Spent With Patient Time: Total time managing care of this patient today ____ minutes.
[2023-09-27 12:25] VITALS: BP 108/76; PULSE 100; RESP 20; TEMP 36.4; O2SAT 95
--- NOTE | 2023-09-27 12:40 | OP_ITS ---
DATE OF SERVICE: 09/27/2023 SURGEON: Tanvir Alfonso MD INDICATIONS: The patient presents for evaluation of gastroesophageal reflux, abnormal barium swallow, and anemia. Full consent has been obtained from her for this, including risks of bleeding and perforation. PREOPERATIVE DIAGNOSIS: POSTOPERATIVE DIAGNOSIS: PROCEDURE PERFORMED: Esophagogastroduodenoscopy with balloon dilation of gastroesophageal junction and biopsies. ESTIMATED BLOOD LOSS: COMPLICATIONS: ANESTHESIA: Monitored anesthesia care. ASSISTANTS: SPECIMENS: PREOPERATIVE DIAGNOSES: Gastroesophageal reflux, abnormal barium swallow, anemia. POSTOPERATIVE DIAGNOSES: Gastroesophageal reflux, abnormal barium swallow, anemia, hiatal hernia, nonobstructing esophageal ring, rule out celiac disease. DESCRIPTION OF PROCEDURE: The patient was placed in the left lateral decubitus position. The Olympus video gastroscope was passed in the posterior oropharynx and upper esophagus under direct vision. The scope was passed slowly to the distal esophagus. The gastroesophageal junction appeared at 30 cm. There was no evidence of any esophagitis nor [place] esophagus. There did appear to be a nonobstructing esophageal ring. The scope easily entered the stomach. There was a moderate-sized hiatal hernia with normal mucosa. The scope was advanced to the pylorus and the duodenum was cannulated to the descending portion. The duodenum including the bulb was carefully inspected and appeared normal. Biopsies were obtained in the second and third portions of duodenum. The scope was withdrawn back to the stomach. The gastric antrum and body appeared normal with good peristalsis. The scope was retroflexed visualizing the proximal stomach carefully, which appeared normal, without any sign of mass or ulceration. The scope was straightened and withdrawn back to the esophagus. I did use a [employer] incremental balloon to dilate the gastroesophageal junction from 18 mm to 19 mm at the recommended pressure for approximately 30 seconds each. Post-dilation, there did not appear to be any appreciable heme nor disruption of the esophageal ring. Proximal to this, the esophageal mucosa appeared normal. The scope was withdrawn from the patient. She tolerated the procedure well and was returned to the recovery area in stable condition. IMPRESSION: 1. Nonobstructing distal esophageal ring, status post balloon dilation. 2. Hiatal hernia. 3. Rule out celiac disease. PLAN: The results of the biopsies will be checked. She will continue her omeprazole 20 mg once or twice a day. She has been found to have anemia with iron deficiency, and I have therefore recommended a colonoscopy to be done while she is still here, early next week. Her diet will be advanced today, but she will need to be on clear liquids for September 28, and then do the bowel prep for the colonoscopy later that day. This has been discussed with her sister, Zo, who is in agreement with the plan. MD LATONIA Irving/MARTIN / [phone] MTDD
--- NOTE | 2023-09-27 12:57 | HO.POSTANES ---
Post Anesthesia Evaluation Post Anesthesia Evaluation Date of Service: 09/27/23 Vital Signs: Vital Signs Temp Pulse Resp BP Pulse Ox O2 Del Method O2 Flow Rate 09/27/23 12:25 97.5 F 100 20 108/76 95 Room Air 09/27/23 12:11 97 F 114 H 18 151/68 H 95 Simple Mask 8 09/27/23 11:29 98.1 F 93 18 130/88 97 Room Air Anesthesia: Monitored Mental Status: Awake Pain Control: Satisfactory Nausea/Vomiting: None Hydration: Adequate Anesthesia-Related Issues: No Anes. Related Issues
== END 2023-09-27 12:32 ==
PROVIDERS: Visit Provider Internal Medicine
PROC: (CPT 43249; principal; 2023-09-27 12:10)
DX: R93.3 Abnormal findings on diagnostic imaging of other parts of digestive tract (principal); R13.10 Dysphagia, unspecified; K21.9 Gastro-esophageal reflux disease without esophagitis; K44.9 Diaphragmatic hernia without obstruction or gangrene; K22.2 Esophageal obstruction; I10 Essential (primary) hypertension; E78.5 Hyperlipidemia, unspecified; E11.9 Type 2 diabetes mellitus without complications; D50.9 Iron deficiency anemia, unspecified; F20.9 Schizophrenia, unspecified; Z79.4 Long term (current) use of insulin; Z79.84 Long term (current) use of oral hypoglycemic drugs; Z79.899 Other long term (current) drug therapy
CPT/HCPCS: 43249; 43239; 88305; 88313; C1726; J2704

== ENCOUNTER 2023-09-30 07:27 | Day surgery (SDC) | payer MEDICARE, MEDICAID, SELFPAY ==
[2023-09-30 07:48] VITALS: BMI 35.3
[2023-09-30 07:55] VITALS: BP 132/75; PULSE 100; RESP 16; TEMP 37.1; O2SAT 94
[2023-09-30 08:03] LABS: Glucose, Whole Blood 151 mg/dL (60-115)
[2023-09-30] MEDS: Lactated Ringers 1,000 ML 50 ML IVCONT (08:07)
--- NOTE | 2023-09-30 08:38 | P.CONAN_ITS ---
HPI - Anesthesia Eval Consult details Narrative: Anemia PMFSH Active Problems Active Problems: All Active Problems (Updated 09/26/23 @ 17:13 by Gabriella Bee) Schizophrenia (Acute) Psychosis (Acute) Dizziness (Acute) Routine medical exam (Acute) Neck muscle spasm (Acute) Past Medical History Medical History Osteoarthritis GERD (gastroesophageal reflux disease) HLD (hyperlipidemia) HTN (hypertension) Type 2 diabetes mellitus Family History Family history of problems with anesthesia: No Surgical History Surgical History History of esophagogastroduodenoscopy (EGD) History of Problems with Anesthesia: No Social History Social History Household Members: None Housing: Other Housing Other:: [facility] Do you presently have visiting nurse or other home services: No Patient Tobacco Use Status: Never used Tobacco Second Hand Smoke Exposure: No Use of substances other than those prescribed or required for medical reasons: Yes Substance Use Type: Marijuana Substance Use Frequency: Occasionally Are you DNR?: No Advance Directives: No Advance Directives Information Provided: Yes service: No Sexual orientation: Straight/Heterosexual Meds Allergies Allergy/AdvReac Type Severity Reaction Status Date / Time No Known Allergies Allergy Verified 09/16/23 21:45 Active Medications: Current Medications Lactated Ringer's (Lr) 1,000 mls @ 50 mls/hr IVCONT .Q20H KALANI Last Admin: 09/30/23 08:07 Dose: 50 mls/hr Sodium Biphosphate/Sodium Phosphate (Sodium Phosphate,Taney-Dibasic 133 Ml Enema) 133 ml [place] ONCE PRN PRN Reason: Poor Colonoscopy Prep Results Exam Height,Weight and Vital Signs: Height 5 ft 2 in Weight 87.5 kg Last Vital Signs Temp 98.7 F 09/30/23 07:55 Pulse 100 09/30/23 07:55 Resp 16 09/30/23 07:55 BP 132/75 09/30/23 07:55 Pulse Ox 94 09/30/23 07:55 O2 Del Method Room Air 09/30/23 07:55 Pertinent Lab Results Pertinent Lab Results: Laboratory Tests 09/30/23 07:59 POC Glucose 151 H Airway Mallampati Class: II TM Dist: >3cm Neck ROM: Full Denture: Upper Loose/Missing/Broken Teeth: Yes (many missing teeth globally lower and upper) Heart: [id number] Lungs: cta b/l Assessment and Plan Assessment Anesthesia Assessment: Anesthesia Plan Discussed and Chart Reviewed Final Anesthetic Review Family History of Problems with Anesthesia: No History of Problems with Anesthesia: No NPO: Yes ASA Class: III Final Preanesthetic Review: No Changes in Pt Med Stat, Meds/Allgs Chart Reviewed, Consent Obtained/Reviewed and Anes Risks/Benef Reviewed Patient Risk: Intermediate Procedure Risk: Intermediate Assessment/Block/Sedation in SS: Assess/Block/Sedation-SS Anesthetic Plan Anesthetic Plan: MAC: Disposition: Standard PACU
--- NOTE | 2023-09-30 08:39 | P.CONAN_ITS ---
HPI - Anesthesia Eval Consult details Narrative: 68 yo female patient for Colonoscopy PMFSH Active Problems Active Problems: All Active Problems (Updated 09/30/23 @ 08:46 by Radha Foley MD) Schizophrenia (Acute) Psychosis (Acute) Dizziness (Acute) Routine medical exam (Acute) Neck muscle spasm (Acute) Past Medical History Medical History Osteoarthritis GERD (gastroesophageal reflux disease) HLD (hyperlipidemia) HTN (hypertension) Type 2 diabetes mellitus Family History Family history of problems with anesthesia: No Surgical History Surgical History H/O colonoscopy History of esophagogastroduodenoscopy (EGD) History of Problems with Anesthesia: No Social History Social History Household Members: None Housing: Other Housing Other:: [facility] Do you presently have visiting nurse or other home services: No Patient Tobacco Use Status: Never used Tobacco Second Hand Smoke Exposure: No Use of substances other than those prescribed or required for medical reasons: Yes Substance Use Type: Marijuana Substance Use Frequency: Occasionally Are you DNR?: No Advance Directives: No Advance Directives Information Provided: Yes service: No Sexual orientation: Straight/Heterosexual Meds Allergies Allergy/AdvReac Type Severity Reaction Status Date / Time No Known Allergies Allergy Verified 09/30/23 08:49 Active Medications: Current Medications Lactated Ringer's (Lr) 1,000 mls @ 50 mls/hr IVCONT .Q20H KALANI Last Admin: 09/30/23 08:07 Dose: 50 mls/hr Sodium Biphosphate/Sodium Phosphate (Sodium Phosphate,Oliver-Dibasic 133 Ml Enema) 133 ml [place] ONCE PRN PRN Reason: Poor Colonoscopy Prep Results Home Medications Medication Instructions Recorded Confirmed Last Taken Type fluoxetine 40 mg capsule 40 mg PO DAILY 09/30/23 09/30/23 Unknown History ipratropium 20 mcg-albuterol 100 1 puff inhalation QID 09/30/23 09/30/23 Unknown History mcg/actuation mist for inhalation (Combivent Respimat) omeprazole 20 mg capsule,delayed 20 mg PO BID 09/30/23 09/30/23 Unknown History release venlafaxine 150 mg 300 mg PO DAILY 09/30/23 09/30/23 Unknown History capsule,extended release 24 hr Exam Height,Weight and Vital Signs: Height 5 ft 2 in Weight 87.5 kg Last Vital Signs Temp 98.7 F 09/30/23 07:55 Pulse 100 09/30/23 07:55 Resp 16 09/30/23 07:55 BP 132/75 09/30/23 07:55 Pulse Ox 94 09/30/23 07:55 O2 Del Method Room Air 09/30/23 07:55 Pertinent Lab Results Pertinent Lab Results: Laboratory Tests 09/30/23 07:59 POC Glucose 151 H Airway Mallampati Class: III TM Dist: >3cm Neck ROM: Full Loose/Missing/Broken Teeth: Yes (Poor dentition. Many broken.) Heart: RRR Lungs: CTAB Assessment and Plan Assessment Anesthesia Assessment: Anesthesia Plan Discussed and Chart Reviewed Final Anesthetic Review Family History of Problems with Anesthesia: No History of Problems with Anesthesia: No NPO: Yes ASA Class: III Final Preanesthetic Review: No Changes in Pt Med Stat, Meds/Allgs Chart Reviewed, Consent Obtained/Reviewed and Anes Risks/Benef Reviewed Patient Risk: Intermediate Procedure Risk: Low Assessment/Block/Sedation in SS: Assess/Block/Sedation-SS Anesthetic Plan Anesthetic Plan: MAC: Disposition: Standard PACU
--- NOTE | 2023-09-30 09:48 | PM.OP ---
Brief Operative Note Date of Service: 09/30/23 Pre-op diagnosis: Anemia Post-op diagnosis: other (Diverticulosis) Procedure: Colonoscopy to the cecum Surgeon: Tanvir Alfonso MD Anesthesia: MAC Was an Auto Service Station Attendant used for this Procedure?: No Estimated blood loss (mL): 0 Pathology: none sent Condition: stable Disposition: PACU
[2023-09-30 09:49] VITALS: BP 132/69; PULSE 99; RESP 19; TEMP 36.6; O2SAT 93
--- NOTE | 2023-09-30 09:50 | PM.EVENT ---
Event Note Date of Service: 09/30/23 Event Note: GI-Full note dictated Colonoscopy to the cecum Findings: 1. Sigmoid diverticulosis 2. Internal hemorrhoids No polyps, no bleeding Rec: Advance diet, start Iron supplement, continue PPI, see me as needed. Thanks Time Spent With Patient Time: Total time managing care of this patient today ____ minutes.
[2023-09-30 10:04] VITALS: BP 121/67; PULSE 91; RESP 16; TEMP 36.4; O2SAT 94
--- NOTE | 2023-09-30 10:29 | OP_ITS ---
DATE OF SERVICE: 09/30/2023 SURGEON: Tanvir Alfonso MD INDICATIONS: The patient presents for evaluation of anemia. Full consent has been obtained from her for this, including risks of bleeding and perforation. PREOPERATIVE DIAGNOSIS: Anemia. POSTOPERATIVE DIAGNOSIS: PROCEDURE PERFORMED: Colonoscopy to the cecum. ESTIMATED BLOOD LOSS: COMPLICATIONS: ANESTHESIA: Monitored anesthesia care. ASSISTANTS: SPECIMENS: POSTOPERATIVE DIAGNOSES: Anemia, diverticulosis, and internal hemorrhoids. DESCRIPTION OF PROCEDURE: The patient was placed in the left lateral decubitus position. The digital rectal exam revealed no abnormalities. The Olympus video pediatric colonoscope was entered into the rectum and advanced easily to the cecum. Once in the cecum, I did identify normal-appearing cecal pouch with appendiceal orifice, although the cecum did require a lot of irrigation and suctioning to obtain adequate visualization. However, the cecum was well visualized and appeared normal. There was transillumination of light deep in the right lower quadrant. The scope was then slowly withdrawn assessing all mucosal surfaces carefully. Preparation was good throughout most of the colon, although the sigmoid colon did have some residual stool which had to be irrigated and suctioned away as best as possible. I did not visualize any sign of polyps, colitis, nor angiodysplasia. There was no sign of any bleeding. There was a mild amount of sigmoid diverticulosis. In the rectum, scope was retroflexed visualizing internal hemorrhoids, but no other pathology. The rectal mucosa appeared normal. Scope was straightened and withdrawn from the patient. She tolerated the procedure well and was returned to the recovery area in stable condition. IMPRESSION: 1. Diverticulosis. 2. Internal hemorrhoids. PLAN: Her diet will be advanced. She should start an oral iron supplement daily. She will continue her PPI. She should theoretically undergo a followup colonoscopy in 10 years for screening. She will otherwise see me as needed. MD LATONIA Irving/MARTIN / [phone] BLANCA
== END 2023-09-30 14:02 ==
PROVIDERS: Visit Provider Internal Medicine
PROC: 0DJD8ZZ Inspection of Lower Intestinal Tract, Via Natural or Artificial Opening Endoscopic (ICD-10-PCS; CPT 45378; principal; 2023-09-30 08:50)
DX: D50.0 Iron deficiency anemia secondary to blood loss (chronic) (principal); K57.30 Diverticulosis of large intestine without perforation or abscess without bleeding; K64.8 Other hemorrhoids; K21.9 Gastro-esophageal reflux disease without esophagitis; I10 Essential (primary) hypertension; F20.9 Schizophrenia, unspecified; E78.5 Hyperlipidemia, unspecified; E11.9 Type 2 diabetes mellitus without complications; Z79.899 Other long term (current) drug therapy
CPT/HCPCS: 45378; 82947; J2704